=== PATIENT | male | born 1935 | race Caucasian/White ===

== ENCOUNTER 2016-12-08 20:00 | Inpatient (IN) | payer OTHER ==
[2016-12-08] MEDS ORDERED: LETS SOLN TOPICAL 1 EA SYR TP ONE (20:56)
[2016-12-08 21:15] LABS: % IMMATURE GRANULYOCYTES 0.4 % (0.0-1.1); ABSOLUTE IMMATURE GRANULOCYTES 0.04 10^3/uL (0.00-0.10); ADD DIFF? NO; ADD MORPH? NO; ADD SCAN? NO; ATYPICAL LYMPHOCYTE FLAG 10 (0-99); FRAGMENT RBC FLAG 0 (0-99); HEMATOCRIT 32.2 % (40.0-51.0); HEMOGLOBIN 10.6 g/dL (13.7-17.5); LEFT SHIFT FLG 0 (0-99); LIPEMIA HEMOLYSIS FLAG 80 (0-99); MEAN CELL HEMOGLOBIN 33.2 pg (27.9-34.1); MEAN CELL HEMOGLOBIN CONCENTR. 32.9 g/dL (32.4-36.7); MEAN CELL VOLUME 100.9 fL (81.5-99.8); MEAN PLATELET VOLUME 8.9 fL (8.7-11.7); PLATELET CLUMPS FLAG 0 (0-99); PLATELET COUNT 283 10^3/uL (150-400); RED BLOOD CELL COUNT 3.19 10^6/uL (4.40-6.38); RED CELL DISTRIBUTION WIDTH 13.5 % (11.5-15.2)
[2016-12-08 21:23] LABS: INR 1.18 (0.83-1.16)
[2016-12-08 21:24] LABS: APTT 33.9 SEC (23.0-38.0)
--- NOTE | 2016-12-08 21:31 | CT ---
1. CT Head Without Contrast History: Fall tonight, patient on blood thinning medicine (Pradaxa), abrasion right forehead. Technique: Noncontrast images through the head. Soft tissue and bone window evaluation is performed. Dose reduction techniques were utilized. Comparison: None Findings: There is focal hypodensity in the right white matter of the right frontal lobe, not associa abraham with obvious mass effect, that is suspicious for an acute or subacute white matter infarction, al though an underlying occult localized mass within the hypodensity (edema) cannot be excluded. There i s an overlying scalp hematoma without evidence of an intervening skull fracture. There is no pneumoce phalus. There is no evidence for hemorrhage, hydrocephalus or abnormal intracranial calcification. Ventricula r size is consistent with the underlying mild-moderate cerebral atrophy. No subarachnoid or subdural blood is identified. There is no midline shift. The ambient cistern is patent. Bone window evaluation reveals normally aerated paranasal and mastoid sinuses. There is no evidence of pneumocephalus. There is severe degenerative change of the craniocervical junction that will be better defined on cer vical CT. Impression: Relatively large area of indeterminate age, hypodensity in the right frontal white matter . Consider MRI without and with contrast for further evaluation, as well as to exclude an underlying mass. 2. CT Cervical Spine Without Contrast History: Trauma. Fall. Patient on per DEXA. Technique: Multislice helical CT through the cervical spine without contrast from the skull base to T 1. Soft tissue and bone evaluation is performed. Sagittal and coronal reconstructions are obtained an d reviewed. Dose reduction techniques were utilized. Findings: Cervical alignment is anatomic except for a mild spondylolisthesis at C4-C5 which is of con cern because there is fusion of all the vertebral bodies and posterior elements in excellent straight alignment between C2 and T1, above and below the C4-C5 level. This could possibly indicate an unstab le injury at the C4-C5 disc space level. My suspicion is that this patient has ankylosing spondylitis or end-stage rheumatoid arthritis with fusion. There is severe arthritic change of the joint between the eroded anterior ring of C1 and the intact odontoid process. There are multiple degenerative ossi cles between the skull base and the tip of the odontoid process. The C1-occipital condyle joints are mildly widened but normally aligned suggesting mild instability likely to compensate for the chronica lly fused lower cervical spine. I do not identify a definite acute fracture line. Soft tissue window evaluation does not show evidence of epidural or prevertebral hematoma. Impression: Potential evidence for an unstable C4-C5 level, related to a previously completely fused cervical spine below C2. Consider MRI of the cervical spine for further evaluation. Results called to Antonio Stephens at 9:27 PM Final results are concordant with the initial interpretation. General information for patients regarding this examination can be found at [email or web address]. If you have questions or comments about this report, please contact me at [phone] (hospital) or [phone] (cell).
[2016-12-08 21:45] LABS: ANION GAP 4 mEq/L (8-16); CALCIUM 8.3 mg/dL (8.5-10.4); CARBON DIOXIDE 26 mEq/l (22-31); CHLORIDE 109 mEq/L (97-110); GLOMERULAR FILTRATION RATE 32; GLUCOSE 89 mg/dL (70-100); POTASSIUM 4.8 mEq/L (3.5-5.2); SODIUM 139 mEq/L (134-144)
[2016-12-08] MEDS ORDERED: GADOBUTROL 10 ML VIAL IVP ONE (22:09)
--- NOTE | 2016-12-08 23:25 | EDPHY ---
H & P Stated Complaint: fall hit head. on Pradaxa Time Seen by Provider: 12/08/16 20:21 HPI/ROS: Chief complaint: Head injury History of present illness: This is a 81-year-old male, taking Pradaxa for atrial fibrillation, who presents to the emergency department for evaluation and treatment of a head injury. Just prior to arrival patient was walking to his car when he accidentally stubbed his toe, this caused him to trip and strike his forehead against the ground. He sustained a laceration to his forehead that has been bleeding, bleeding has been controlled with application of a dressing. He denies loss of consciousness. He denies headache or pain in other parts of his body. No reported paresthesias, weakness or paralysis or bowel or bladder dysfunction. Review of systems: A 10 point review of systems was obtained and other than described above was negative - Personal History Current Tetanus/Diphtheria Vaccine: Yes Current Tetanus Diphtheria and Acellular Pertussis (TDAP): Yes - Medical/Surgical History Hx Asthma: No Hx Chronic Respiratory Disease: No Hx Diabetes: No Hx Cardiac Disease: Yes Hx Renal Disease: Yes Hx Cirrhosis: No Hx Alcoholism: No Hx HIV/AIDS: No Hx Splenectomy or Spleen Trauma: No Other PMH: AFIB,ARTHRITIS,ULCER-1990, HIP FX W/ PINS, NECK FUSION, intermittent L arm/shoulder pain - Social History Smoking Status: Former smoker - Physical Exam Exam: General Appearance: Alert, nontoxic Eyes: PERRLA ENT: No hemotympanum, no diaz sign, no raccoon eyes Respiratory: Lungs clear to auscultation bilaterally Cardiac: Regular rate and rhythm. Gastrointestinal: Bowel sounds normal. Abdomen is soft, nondistended, nontender. Neurological: Alert and oriented. Strength and sensation intact and symmetrical. Skin: 1 cm laceration, vertically oriented to the right forehead Musculoskeletal: Forehead is tender around the laceration. The rest of the head is nontender. No apparent tenderness on palpation of the spine. Chest wall intact palpation. Moving all extremities without difficulty. Constitutional: Initial Vital Signs Temperature (C) 36.6 C 12/08/16 20:06 Heart Rate 72 12/08/16 20:06 Respiratory Rate 16 12/08/16 20:06 Blood Pressure 165/79 H 12/08/16 20:06 O2 Sat (%) 97 12/08/16 20:06 O2 Delivery Mode Room Air Allergies/Adverse Reactions: infliximab [From Remicade] Allergy (Verified 12/08/16 20:05) BENZOINE Allergy (Uncoded 12/08/16 20:05) Home Medications: Medication Instructions Recorded Dabigatran Etexilate Mesyl 75 mg PO BID 04/28/16 [Pradaxa] Diltiazem [Cardizem Immediate 120 mg PO 04/28/16 Release] Losartan Potassium [Cozaar] 12.5 mg PO 04/28/16 Omeprazole 40 mg PO DAILY 04/28/16 oxyCODONE IR [Oxycodone Ir (RX)] 10 mg PO PRN PRN 04/28/16 traZODone [traZODONE 100MG (*)] 100 mg PO 04/28/16 Folic Acid 12/08/16 Vitamin B-12 12/08/16 Medical Decision Making - Diagnostics Imaging: CT scan of the head concerning for large right frontal mass, CT of the cervical spine concerning for a unstable C4-C5 injury MRI of the brain without contrast concerning for large mass with vasogenic edema MRI of the cervical spine negative for acute injury MRI of the brain with IV contrast is pending at time of dictation Procedures: Procedure: Laceration repair. Verbal consent was obtained from the patient. The 1 cm laceration on the right forehead was anesthetized in the usual fashion. The wound was irrigated, draped and explored to its base with a gloved finger. There were no deep structures involved. No tendon injury was identified. The wound was repaired with 5 0 Prolene, running stitch. The wound repair was simple. The procedure was performed by myself. ED Course/Re-evaluation: Patient is discussed with my secondary supervising physician Dr. Len Cloud. Patient presents to the emergency department for evaluation of a head injury. Ultimately a brain mass is noted. Patient will therefore be admitted to the hospitalist service, Dr. Valentin Medrano. On-call neurosurgery, Dr. Trivedi will consult on this patient. The plan has been discussed with the patient who voiced understanding and agreement with it. Differential Diagnosis: Included but not limited to contusion, bony fracture, intracranial bleed, spinal cord injury - Data Points Laboratory Results: Laboratory Results 12/08/16 21:00 12/08/16 21:00 12/08/16 21:00 WBC 9.68 H 10^3/uL (3.80-9.50) RBC 3.19 L 10^6/uL (4.40-6.38) Hgb 10.6 L g/dL (13.7-17.5) Hct 32.2 L % (40.0-51.0) MCV 100.9 H fL (81.5-99.8) MCH 33.2 pg (27.9-34.1) MCHC 32.9 g/dL (32.4-36.7) RDW 13.5 % (11.5-15.2) Plt Count 283 10^3/uL (150-400) MPV 8.9 fL (8.7-11.7) Neut % (Auto) 74.1 % (39.3-74.2) Lymph % (Auto) 13.1 L % (15.0-45.0) [place] % (Auto) 10.3 % (4.5-13.0) Eos % (Auto) 1.7 % (0.6-7.6) Baso % (Auto) 0.4 % (0.3-1.7) Nucleat RBC Rel Count 0.0 % (0.0-0.2) Absolute Neuts (auto) 7.17 H 10^3/uL (1.70-6.50) Absolute Lymphs (auto) 1.27 10^3/uL (1.00-3.00) Absolute Monos (auto) 1.00 H 10^3/uL (0.30-0.80) Absolute Eos (auto) 0.16 10^3/uL (0.03-0.40) Absolute Basos (auto) 0.04 10^3/uL (0.02-0.10) Absolute Nucleated RBC 0.00 10^3/uL (0-0.01) Immature Gran % 0.4 % (0.0-1.1) Immature Gran # 0.04 10^3/uL (0.00-0.10) PT 15.0 SEC (12.0-15.0) INR 1.18 H (0.83-1.16) APTT 33.9 SEC (23.0-38.0) Sodium 139 mEq/L (134-144) Potassium 4.8 mEq/L (3.5-5.2) Chloride 109 mEq/L (97-110) Carbon Dioxide 26 mEq/l (22-31) Anion Gap 4 mEq/L (8-16) BUN 30 H mg/dL (7-23) Creatinine 2.0 H mg/dL (0.7-1.3) Estimated GFR 32 Glucose 89 mg/dL (70-100) Calcium 8.3 L mg/dL (8.5-10.4) Medications Given: Discontinued Medications Tetracaine/Epinephrine/Lidocaine (Lets Soln Topical) 1 ea TP EDNOW ONE Stop: 12/08/16 20:57 Last Admin: 12/08/16 21:10 Dose: 1 ea Departure - Departure Disposition: [facility] Inpatient Acute Clinical Impression: Mass of brain Laceration of forehead Qualifiers: Encounter type: initial encounter Qualifier Code: (S01.81XA) Laceration without foreign body of other part of head, initial encounter Condition: Good
--- NOTE | 2016-12-08 23:29 | MR ---
1. MRI of the Brain (Without Contrast) History: Fall, patient on blood thinner, hypodense right frontal lobe lesion identified on CT. Technique: T1-weighted images were acquired axially and sagittally from the foramen magnum to the ve rtex. Axial fast inversion recovery, fast T2-weighted, GRE and diffusion-weighted axial images were obtained without contrast. Findings: There is an area of vasogenic edema in the right frontal lobe that appears to be peripheral to a heterogeneous solid mass measuring approximately 26 x 12 mm in diameter that resides between th e right frontal horn and the lateral frontal cortex. There is no gradient drop out, indicating that t his does not represent hemorrhage, confirming the CT. Interestingly the lesion does not have signific ant mass effect. On the ADC map the lesion is bright but on the diffusion image it is dark, with the adjacent vasogenic edema demonstrating T2 shine through. There is diffuse moderate cerebral atrophy c onsistent with the patient's age. There is normal flow void in the vessels of the skull base. There i s scattered supratentorial microvascular ischemic change bilaterally with a few tiny lacunar veins pr esent in the white matter of the right posterior frontal and anterior parietal white matter. Impression: Suspicious for an unusual mass in the deep right frontal white matter associated with per ipheral vasogenic edema. Is there history of malignancy? MRI with IV contrast would be useful. 2. MRI of the Cervical Spine (Without Contrast) History: Fused cervical spine with a focal uni level spondylolisthesis at C4-C5 raising the possibili ty of occult unstable fracture in a patient with ankylosing spondylitis Technique: Sagittal T1, FSE T2 and STIR images. Axial FSE T2 and GRE images. Findings: The spine is completely fused between C2 and T1. There is no edema or evidence of a fractur e. The C4-C5 spondylolisthesis is solidly fused. There is no prevertebral or epidural hematoma. The c ervical cord is normal intrinsically. All neural foramen are widely patent. Impression: No evidence for occult fracture or cervical bleeding.. Results discussed with Antonio Stephens at 11:15 PM
[2016-12-08] MEDS ORDERED: ONDANSETRON 4 MG/2 ML VIAL IVP PRN (23:55)
[2016-12-08] MEDS ORDERED: oxyCODONE IR 5 MG TAB PO PRN (23:55)
[2016-12-08] MEDS ORDERED: ACETAMINOPHEN 325 MG TAB PO PRN (23:55)
[2016-12-08] MEDS ORDERED: PROMETHAZINE HCL 25 MG/ML INJ IVP PRN (23:55)
[2016-12-09] MEDS ORDERED: NS 1,000 ML IV ONE (00:56)
--- NOTE | 2016-12-09 01:18 | GHP ---
[f rep st] HISTORY AND PHYSICAL DATE OF ADMISSION: 12/08/2016 CHIEF COMPLAINT: Slip and fall. HPI: This is a 81-year-old male with history of atrial fibrillation and ankylosing spondylitis. He presented to the emergency department after sustaining a mechanical fall this evening. The patient w as at dinner at the [facility] [employer] when he was walking across a dark parking lot, stepped in a potho le, and tumbled forward landing on his head. He denied any loss of consciousness. The patient denies any significant recent falls. He denies any new numbness or weakness. During the patient's emergency department workup, he underwent a head CT and a cervical spine CT. The head CT showed a relatively large area of indeterminate age, hypodensity in the right frontal white matter. Subsequently, an MRI was done, which revealed a right frontal lobe mass. PAST MEDICAL HISTORY: 1. Atrial fibrillation. 2. Ankylosing spondylitis, not currently on immunosuppressive agents. 3. Peptic ulcer disease. 4. Chronic kidney disease, followed by Dr. Burks. PAST SURGICAL HISTORY: 1. Right hip ORIF. 2. Cervical fusion. HOME MEDICATIONS: Trazodone, oxycodone, Tylenol, Cozaar, diltiazem, Pradaxa. ALLERGIES: Remicade caused a rash. SOCIAL HISTORY: The patient is . His of pancreatic cancer a year and a half ago. He lives in [place]. He denies any tobacco or illicit drug use. He drinks alcohol occasionally. FAMILY HISTORY: Reviewed and noncontributory. REVIEW OF SYSTEMS: Comprehensive 10-point review of systems was done and is negative except for as m entioned in the HPI. PHYSICAL EXAM: VITAL SIGNS: Blood pressure 148/91, pulse 76, respiratory rate 16, O2 saturation 95% on room air. Temperature afebrile. GENERAL: No acute distress. HEAD: Normocephalic. There is a sutured laceration right forehead. MOUTH: Moist mucous membranes. NECK: Supple. No lymphadenopa thy. CARDIOVASCULAR: S1, S2. No JVD. No lower extremity edema. PULMONARY: Lungs are clear. No wheezes, rales, or rhonchi. ABDOMEN: Soft, nontender, nondistended. No guarding or rebound tendern ess. Normoactive bowel sounds. EXTREMITIES: No clubbing or cyanosis. NEURO: Face is symmetric. Cranial nerves 2 through 12 grossly intact. Muscle strength 5/5 bilateral upper extremities. Flexio n, extension, design technology teacher strength. Muscle strength 5/5 flexion and extension at the hip, at the knee, and at the foot. DTRs are 2+ and symmetric at the patella. SKIN: Clear. No rashes. DIAGNOSTICS: WBC is 9.68, hemoglobin 10.6, hematocrit 32.2, platelets 283. INR 1.18. Sodium 139, p otassium 4.8, chloride 109. CO2 26, BUN 30, creatinine 2, glucose 89. IMAGING: Head CT was reviewed. Refer to report. C-spine CT showed evidence for unstable C4-C5. Ce rvical spine MRI is pending. ASSESSMENT/PLAN: This is a 81-year-old male, who sustained a mechanical fall this evening, landing o n his head, found incidentally to have: 1. Right frontal mass of uncertain etiology. Plan: The patient will be admitted to the hospital wh ere he will be monitored. Dr. Trivedi from Neurosurgery was consulted by the emergency department who will see the patient in the morning. For now, I will defer any further testing. 2. History of chronic kidney disease, stage 3. Plan: Avoid nephrotoxins. MRI of the brain with ga dolinium has been suggested. I would like to discuss this with his treating locker attendant in the radi ology department in the morning to further weigh the risks and benefits of further imaging with the r isk of nephrogenic systemic fibrosis. 3. Macrocytic anemia that appears to be chronic. Plan: Monitor for bleeding. 4. History of ankylosing spondylitis. 5. The patient requests to be DNR status. /[id number]/MODL
[2016-12-09 05:11] LABS: % IMMATURE GRANULYOCYTES 0.3 % (0.0-1.1); ABSOLUTE IMMATURE GRANULOCYTES 0.03 10^3/uL (0.00-0.10); ADD DIFF? NO; ADD MORPH? NO; ADD SCAN? NO; ATYPICAL LYMPHOCYTE FLAG 10 (0-99); FRAGMENT RBC FLAG 0 (0-99); HEMATOCRIT 30.3 % (40.0-51.0); HEMOGLOBIN 9.8 g/dL (13.7-17.5); LEFT SHIFT FLG 0 (0-99); LIPEMIA HEMOLYSIS FLAG 80 (0-99); MEAN CELL HEMOGLOBIN CONCENTR. 32.3 g/dL (32.4-36.7); MEAN PLATELET VOLUME 9.3 fL (8.7-11.7); PLATELET CLUMPS FLAG 0 (0-99); PLATELET COUNT 275 10^3/uL (150-400); RED BLOOD CELL COUNT 2.97 10^6/uL (4.40-6.38); RED CELL DISTRIBUTION WIDTH 13.3 % (11.5-15.2)
[2016-12-09 05:27] LABS: ANION GAP 6 mEq/L (8-16); CARBON DIOXIDE 25 mEq/l (22-31); CHLORIDE 111 mEq/L (97-110); CREATININE 1.7 mg/dL (0.7-1.3); GLOMERULAR FILTRATION RATE 39; GLUCOSE 68 mg/dL (70-100); POTASSIUM 4.7 mEq/L (3.5-5.2); SODIUM 142 mEq/L (134-144)
[2016-12-09] MEDS ORDERED: GADOBUTROL 10 ML VIAL IVP ONE (08:59)
--- NOTE | 2016-12-09 10:53 | MR ---
MRI Examination of the Brain, With Contrast. HISTORY: Prior examination of one day earlier demonstrates an abnormal area of signal intensity withi n the right frontal region. Additional characterization with postcontrast enhanced imaging requested. TECHNIQUE: After intravenous administration of 5 mL Gadavist, post contrast enhanced MR imaging of th e brain is obtained in 3 planes. COMPARISON STUDY: December 08, 2016. FINDINGS: The previously identified area of abnormal signal intensity within the right frontal lobe i s again noted, associated with poorly defined parenchymal enhancement and gyral enhancement, with vas ogenic edema. Imaging features are most compatible with a subacute ischemic infarction with luxury pe rfusion centrally. A mass is felt to be less likely. Follow up imaging in 2-3 months would be of bene fit in documentation of progressive evolution of ischemic injury or persistence of abnormality which would favor a mass. Also noted on prior study is an additional area of acute focal ischemia within the left occipital lob e, findings suggesting multiple sites of brain ischemia of different age and in different vascular te rritories. This area does not enhance due to its acute age. No additional areas of abnormal enhancement noted. Underlying cerebral and cerebellar atrophy is agai n identified. There is thickening and enhancement of the subcutaneous tissues over the right frontal region compatible with prior trauma and hematoma. IMPRESSION: 1. Abnormal enhancement of the parenchyma and cortex of the right frontal lobe, with imaging features favoring a subacute ischemic infarction. Follow up MR in 2-3 months would be of benefit in confirmat ion. 2. Small focus of acute cortical ischemia within the left occipital lobe. 3. Abnormal thickening and enhancement of the subcutaneous tissues over the right frontal region comp atible with prior trauma/hematoma. Cosigned: Mian Wong M.D.
--- NOTE | 2016-12-09 12:00 | NEUSURGPN ---
Assessment/Plan: 81 yo male status post mechanical fall. No LOC Mild right scalp lac - sutured MRI with abnormal right frontal lesion to be discussed in detail at our next Tumor Board meeting. Pt may be seen as outpatient for further treatment options per Dr. Farooq GARCIA per Medicine Formal consult dictation to jim Subjective: Awake, alert, comfortable. Denies ROGERS or neuro changes Eating breakfast Objective: Neuro: A+OX 4 PERRLA, EOMI follows commands speech clear, no facial droop no focal weakness Neurosurgery Physical Exam - Vitals, I&O, Labs I and O 12/08/16 12/09/16 12/10/16 05:59 05:59 05:59 Intake Total 10 Balance 10 Weight 63.5 kg Intake: IV Infused (ml) 10 Vital Signs Temp Pulse Resp BP Pulse Ox 36.7 C 70 20 148/78 H 97 12/09/16 11:36 12/09/16 11:36 12/09/16 11:36 12/09/16 11:36 12/09/16 11:36 Laboratory Results 12/09/16 04:49 12/09/16 04:49 ICD10 Worksheet Patient Problems: Problems Problem Status Diagnosed Brain mass Acute Forehead laceration Acute
[2016-12-09] MEDS ORDERED: oxyCODONE IR 5 MG TAB PO PRN (12:49)
--- NOTE | 2016-12-09 13:30 | GCON ---
[f rep st] CONSULTATION NEUROSURGERY CONSULTATION DATE OF CONSULTATION: 12/09/2016 CHIEF COMPLAINT: Mechanical fall. HISTORY OF PRESENT ILLNESS: The patient is a pleasant 81-year-old gentleman with a history of atrial fibrillation on Pradaxa. He also has a history of ankylosing spondylitis. The patient states that he was walking through a dark parking lot last night, when he thinks he stepped in a small possible and suffered a mechanical fall without any loss of consciousness. He drove himself to the emergency department where he was seen and admitted to the step-down unit overnight for further observation. A CT scan of the head was performed in the ED with no evidence of acute blood, but there was a hypodensity noted in the right frontal region and a subsequent MRI was performed demonstrating abnormal enhancement of the parenchyma and cortex in the right frontal lobe. Overnight, the patient did not have any neurologic changes, and currently this morning he is doing well. ALLERGIES: Remicade. PAST MEDICAL HISTORY: 1. Atrial fibrillation on Pradaxa. 2. Ankylosing spondylitis. 3. Peptic ulcer disease. 4. Chronic kidney disease. PAST SURGICAL HISTORY: Right hip surgery and prior cervical fusion. MEDICATIONS: At home: Trazodone, oxycodone, Tylenol, Cozaar, diltiazem, Pradaxa. SOCIAL HISTORY: Nonsmoker. He is a . He drinks a glass of wine daily and lives alone. REVIEW OF SYSTEMS: Negative except for what is mentioned in the HPI. PHYSICAL EXAM: GENERAL: Pleasant, healthy-appearing 81-year-old male, in no apparent distress. HEAD, EARS, NOSE AND THROAT: Within normal limits with the exception of a sutured right forehead laceration. EXTREMITIES: Within normal limits, with the exception of a bandage over his right kneecap. SKIN: [place], warm and dry. NEUROLOGIC: The patient is awake, alert, and oriented x4. Cranial nerves 2-12 are intact to gross examination. Speech is fluent. Tongue is midline. Spinal axis muscles are intact. There is no facial droop. No pronator drift. The patient has equal and symmetric strength of the bilateral upper and lower extremities with symmetrically decreased reflexes throughout the bilateral upper and lower extremities at 1+. There is no clonus and no Sorenson's. FAMILY HISTORY: Reviewed and noncontributory. DATA REVIEW: CT scan of the brain without contrast on 12/08/2016 demonstrates no evidence of acute hemorrhage, with focal hypodensity in the right frontal lobe not associated with any mass effect. This is suspicious for an acute or subacute white matter infarction, although an underlying occult localized mass within the hypodensity cannot be excluded. Soft tissue swelling on the overlying scalp hematoma is noted. There is no evidence of pneumocephalus. CT of the cervical spine shows spinal spondylolisthesis at C4-5. There is fusion of all the cervical vertebral bodies and posterior elements between C2 and T1. Abnormal arthritic changes of the joint between the eroded anterior ring of C1 and the intact spinous processes noted. MRI of the brain shows a small acute nonhemorrhagic infarct in the right posterior occipital lobe. Abnormal mass is noted in the deep right frontal white matter associated with peripheral vasogenic edema. IMPRESSION: This is a 81-year-old male, status post mechanical fall. He has history of atrial fibrillation and takes Pradaxa. An admission head CT did not demonstrate any acute hemorrhage, but did reveal an underlying abnormal right frontal mass which was further evaluated with an MRI of the brain. It is unclear what this mass is. The patient remains neurologically stable at this time, is doing well. PLAN: Above issues were discussed with the patient in detail today, as well as with Dr. Trivedi who saw the patient in the ICU. At this time, we recommend that the patient's images of the brain be discussed at our next tumor board in approximately 2 weeks from now for further treatment and recommendations regarding the abnormal right frontal lobe lesion. The patient understands this and from our standpoint could be discharged home, but that will be up to the Medicine Service at this time. We would recommend outpatient followup with Dr. Trivedi in approximately 2 weeks to discuss further treatment options pending are review of his images at tumor board. Copy requested to: Dr. Len Trevino /[id number]/MODL MTDD
--- NOTE | 2016-12-09 14:05 | GCON ---
[f rep st] CONSULTATION STITCH MARKER CONSULTATION DATE OF CONSULTATION: 12/09/2016 REASON FOR ADMISSION: Fall. HISTORY OF PRESENT ILLNESS: The patient is a very pleasant 81-year-old white male with extensive pas t medical history of atrial fibrillation, peptic ulcer disease, chronic renal insufficiency, and anky losing spondylitis. He presented after a fall at home. He landed on his forehead after stepping in a pothole. There was no loss of consciousness, but he could not get the bleeding to stop. He was alexander bsequently admitted. CT scan and then subsequently an MRI were performed, which showed a right front al lobe mass. Currently, patient is comfortable. He is awake and alert and oriented x3 and he wishe s to be discharged home. 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 PAST SURGICAL HISTORY: Hip surgery and a cervical fusion. ALLERGIES: Remicade. SOCIAL HISTORY: No history of tobacco use. No history of significant alcohol use. He is . MEDICATIONS: At home include trazodone, oxycodone, Tylenol, Cozaar, diltiazem, and Pradaxa. PHYSICAL EXAM: VITAL SIGNS: Blood pressure 148/78, pulse 70, respirations 20, temperature is 36.7, oxygen saturation 97% on room air. GENERAL: He is a well developed, well nourished, 81-year-old, wh ite male who is resting comfortably in no acute distress HEENT: Eyes: PERRL, EOMI. Throat shows no erythema or tonsillar hypertrophy. NECK: Supple. There is no cervical adenopathy. HEART: Regula r rate and rhythm without murmurs, rubs, gallops. LUNGS: Diminished breath sounds. Mild prolongati on of expiratory phase, but there is no wheeze. ABDOMEN: Soft, nontender. Bowel sounds present in all 4 quadrants. EXTREMITIES: No clubbing, cyanosis, or edema. LABORATORIES: White count is 9.5, hemoglobin 9.8, hematocrit 30, platelet count is 275. Sodium 142, potassium 4.7, chloride 111, CO2 is 25, BUN 28, creatinine 1.7, glucose is 68. Brain MRI showed abnormal enhancement of the parenchyma and cortex of the right frontal lobe. IMPRESSION: 1. Status post fall. 2. Head trauma. 3. Right frontal mass, etiology of which is unclear. Query whether this is tumor versus old stroke. 4. History of atrial fibrillation, on chronic anticoagulation. 5. Ankylosing spondylitis. 6. Peptic ulcer disease. 7. Chronic renal insufficiency. RECOMMENDATIONS: The patient has been seen by Neurosurgery who feel he may be seen as an outpatient by Dr. Trivedi. Will discuss the case with Medicine. Anticipate patient being discharged home today. Thank you very much. /[id number]/MODL
--- NOTE | 2016-12-09 16:18 | HOSPPROG ---
Hospitalist Progress Note Assessment/Plan: * brain mass versus subacute CVA * favoring CVA * does have atrial fibrillation but states that he has been taking his Pradaxa * will have Neurology see * get carotid ultrasound as well as echo * PT OT eval * history atrial fibrillation * will hold Pradaxa until neuro sees. Not sure if we should be anticoagulating with a fairly large stroke * chronic renal disease * appears to be at baseline * social * lost about a year and a half ago and has been declining rapidly since then Subjective: no new complaints. Denies any focal weakness. States he has been feeling overall weak the last few days Objective: Vital Signs Temp Pulse Resp BP Pulse Ox 36.7 C 56 L 19 171/89 H 98 12/09/16 15:34 12/09/16 15:34 12/09/16 15:34 12/09/16 15:34 12/09/16 15:34 Laboratory Results 12/09/16 04:49 12/09/16 04:49 12/08/16 12/09/16 12/10/16 05:59 05:59 05:59 Intake Total 10 Balance 10 PT 15.0 SEC (12.0-15.0) 12/08/16 21:00 INR 1.18 (0.83-1.16) H 12/08/16 21:00 - Physical Exam Constitutional: no apparent distress, appears nourished, not in pain Eyes: anicteric sclera, EOMI Ears, Nose, Mouth, Throat: moist mucous membranes, hearing normal, ears appear normal Cardiovascular: regular rate and rhythym, no murmur, rub, or gallop Respiratory: no respiratory distress, no rales or rhonchi Gastrointestinal: normoactive bowel sounds, soft, non-tender abdomen, no palpable masses Skin: warm Neurologic: AAOx3 Psychiatric: interacting appropriately, not anxious, not encephalopathic, thought process linear ICD10 Worksheet Patient Problems: Problems Problem Status Diagnosed Brain mass Acute Forehead laceration Acute
--- NOTE | 2016-12-09 16:22 | ECHO ---
[id number] + + [address] : : [place] [address] : : [phone] + + Adult Echocardiographic Report + --------+ :Name: NORA YOUNG HStudy Date: 12/09/2016 11:51 AM BP: 148/78 mm Hg : : Hospital Admission Number: [id number] Locat ion: 241: :: 1935 Gender: Male Height: 67 in : :Age: 81 yrs Race: WH Weight: 139 l b : :Reason For Study: source of emboli : : BSA: 1.7 mete rs2 : :History: cva : + --------+ MMode/2D Measurements & Calculations IVSd: 1.3 cm RVDd: 3.4 cm FS: 28.5 % LVLd ap4: 8.2 cm LVPWd: 1.1 cm LVIDd: 4.1 cmEDV(Teich): 72.6 mlEDV(MOD-sp4): 117.0 ml LVIDs: 2.9 cmESV(Teich): 32.3 mlLVLs ap4: 7.2 cm EF(Teich): 55.5 % ESV(MOD-sp4): 37.0 ml EF(MOD-sp4): 68.4 % SV(MOD-sp4): 80.0 ml Normal Measurement Values: + + :LVIDd (3.5-5.7cm) IVSd (0.6-1.1cm) LVPWd (0.6-1.1cm) Aortic Root (2.0-3.7cm)Left Atrium (1.5-4.0cm): :LV Vol(d) (76-115ml) LV Vol(s) (29-48ml) Ejec Fraction (50-65%)PV Yordan (0.6- 1.2m/s) TV Yordan (0.4-1.0m/s) : :MV E Yordan (0.8-1.0m/s)MV A Yordan (0.3-1.0m/s)LVOT Yordan (0.7-1.2m/s) Asc Ao Yordan ( 0.9-1.8m/s) : + + Doppler Measurements & Calculations MV E max yordan: Ao V2 max: LV V1 max: PA V2 max: 62.7 cm/sec 129.4 cm/sec 119.4 cm/sec 67.2 cm/sec MV A max yordan: Ao max PG: LV V1 max PG: PA max P.3 cm/sec 6.7 mmHg 5.7 mmHg 1.8 mmHg MV E/A: 0.66 MV dec time: 0.26 sec TR max yordan: 297.7 cm/sec TR max P.4 mmHg RAP systole: 5.0 mmHg RVSP(TR): 40.4 mmHg Left Ventricle The left ventricle is normal in size and function. There is mild concentric left ventricular hypertrophy. There is Doppler evidence for diastolic dysfunction. Ejection Fraction = 65-70%. No regional wall motion abnormalities noted. Right Ventricle The right ventricle is normal in size and function. Atria The left atrial size is normal. Right atrial size is normal. Mitral Valve The mitral valve is normal in structure and function. Elongated mitral valve chordea noted which is noted to migrate into the left ventricular outflow tract during systole. No LVOT obstruction noted. There is no mitral valve stenosis. There is mild mitral regurgitation. Tricuspid Valve The tricuspid valve is normal in structure and function. There is no tricuspid stenosis. There is mild tricuspid regurgitation. Right ventricular systolic pressure is 40mmHg. There is Doppler evidence for mild pulmonary hypertension. Aortic Valve The aortic valve is normal in structure and function. There is no aortic stenosis. Trace aortic regurgitation. Pulmonic Valve The pulmonic valve is not well visualized. Great Vessels Borderline aortic root dilatation. Pericardium/Pleural trivial pericardial effusion. Conclusion A two-dimensional transthoracic echocardiogram with M-mode and Doppler was performed. There is no obvious source of embolus identified. If one is highly clinically suspected, then transesophageal echocardiography should be considered. The left ventricle is normal in size and function. There is mild concentric left ventricular hypertrophy. There is Doppler evidence for diastolic dysfunction. Ejection Fraction = 65-70%. There is mild mitral regurgitation. There is mild tricuspid regurgitation. Right ventricular systolic pressure is 40mmHg. There is Doppler evidence for mild pulmonary hypertension. The aortic valve is normal in structure and function. Trace aortic regurgitation. Borderline aortic root dilatation. Trivial pericardial effusion is present. Final Reading Physician: Jaclyn Ortiz signed on 12/09/2016 04:20 PM Ordering Physician: Jaret Mahoney Performed By: Andreia Head
[2016-12-09] MEDS: DABIGATRAN ETEXILATE MESYL 75 MG CAP PO SCH (18:11)
[2016-12-09] MEDS: ACETAMINOPHEN 500 MG TAB PO SCH (19:22)
[2016-12-09] MEDS: PANTOPRAZOLE SODIUM 40 MG TAB PO SCH (19:23)
--- NOTE | 2016-12-09 20:26 | US ---
Bilateral Duplex/Doppler Carotid Sonography Clinical Indications: History of CVA in a 81-year-old male; evaluate for arterial occlusive disease. Technique: The cervical portions of the carotid and vertebral arteries were imaged and interrogated b y color and pulsed Doppler. Spectral analysis was performed. Findings: Right Carotid: The common carotid artery, bifurcation, and origins of the internal and external carot id arteries are well imaged. Moderate plaque formation is seen at the level of the carotid bifurcati on. Peak ICA systolic velocity; 88 cm/sec. The internal to common carotid artery ratio is calculated at 1.2. Peak ICA diastolic velocity; 22 cm/sec. There is no evidence of flow-limiting stenosis. Left Carotid: The common carotid artery, bifurcation, and origins of the internal and external carot id arteries are well imaged. Mild-moderate plaque formation is seen at the level of the carotid bifurcation. Peak ICA systolic velocity; 97 cm/sec. The internal to common carotid artery ratio is calculated at 1.1. Peak ICA diastolic velocity; 22 cm/sec. There is no evidence of flow-limiting stenosis. Vertebral Arteries: Antegrade flow is shown by pulsed Duplex/Doppler of each vertebral artery. Impression: Plaque formation is seen involving the carotid bifurcations bilaterally with no evidence of flow-limiting carotid stenosis. Measurement of carotid stenosis is based on velocity parameters that correlate the residual internal carotid diameter with [place] Symptomatic Carotid Endarterectomy Trial (NASCET) based stenosis levels.
[2016-12-09] MEDS ORDERED: traZODone 100 MG TAB PO SCH (21:00)
[2016-12-09] MEDS ORDERED: NON-FORMULARY NEW DRUG (Omeprazole [Omeprazole] 40 MG) PO SCH (21:00)
[2016-12-09] MEDS ORDERED: DILTIAZEM CD 120 MG CAP PO SCH (21:00)
--- NOTE | 2016-12-09 23:06 | GCON ---
[f rep st] CONSULTATION NEUROLOGIC CONSULTATION. REFERRING PHYSICIAN: Valentin Medrano DO HISTORY: The patient is a 81-year-old gentleman who I am asked to see in neurologic consultation whit galvan possible stroke versus a right frontal mass lesion. The history is obtained from reviewing me dical records, as well as discussion with the patient. He came to the hospital yesterday to the [facility] room where he drove himself after a fall. He said he was walking in a parking lot and it was d ark, and he tripped in a pot hole, and hit his right frontal scalp. He has no history of similar pro blems. He has never had a known stroke. He was not experiencing any focal numbness or weakness. Over the years, of about 2 years, he has noticed various visual phenomena he described as red dots or spider web type phenomena in his vision when he is looking at something white. He has had ophthalmo logic exams, and they have never found anything specific to explain it. When he had his symptoms dev elop, he says he was not confused. He has a history of atrial fibrillation and is currently on Wes xa which he has been on for a few years. History of hip fracture and neck fusion, and intermittent p ains in his shoulders. SOCIAL HISTORY: He quit smoking many years ago. He has about 1 glass of wine a day. FAMILY HISTORY: Notable for stroke in his mother who around age 80. STUDIES: In the emergency department, he had CT showing a right frontal hypodensity with possible ma ss, and subsequent MRI reported that there was a possible mass with edema but no mass effect. Then s ubsequent MRI with contrast has been interpreted as more consistent with ischemic change, perhaps sub acute infarct in the right frontal region and a left posterior occipital area of restricted diffusion consistent with acute ischemia. Therefore, I was called for consultation regarding these issues. REVIEW OF SYSTEMS: As outlined above, otherwise unremarkable. PHYSICAL EXAM: VITAL SIGNS: Blood pressure is 171/89, pulse of 56, respirations 19, temperature 36. 7. GENERAL: He is well developed, no acute distress. NECK: Supple with no bruits or masses. CARD IAC: Regular rate and rhythm. NEUROLOGIC: He is awake, alert, attentive with clear fluent speech a nd oriented to person, place, and time. The NIH stroke scale is 0. Pupils are 3 mm and reactive. E xtraocular movements are intact. Visual vargas are full. I do not detect any facial asymmetry. No facial numbness. On motor, normal muscle bulk and tone with no focal weakness, but perhaps a little bit of mild proximal weakness in the upper extremities. He is not ataxic. Reflexes 1+. I have reviewed all diagnostic studies and agree with interpretations with this question of evolving ischemic changes in the right frontal lobe versus an underlying mass, and then the acute ischemic steve nges in the left posterior occipital lobe. The MRI report from December 09 documents this. The brain MRI from December 08 has an addendum which incorrectly states this is in the right posterior occipita l lobe but it is in the left posterior occipital lobe. IMPRESSION: The patient has evidence of an acute stroke in the left posterior occipital lobe without any clinical features to explain this. He also has an area of edema in the right frontal lobe just lateral to the anterior horn of the lateral ventricle and extending towards the cortex with features a bit more suspicious for a subacute infarction rather than a mass lesion like a neoplasm. However, the presentation is a little unusual in that he simply had a fall which led to the imaging a nd these findings. He does not have a neurologic deficit that correlates with any of the findings. I do not think the direct right forehead trauma would so rapidly produce these changes in the right f rontal lobe, although that is precisely where he hit his head. The right frontal area is relatively silent clinically, so he may have very well suffered an infarct which would suggest he might be break ing through anticoagulation for his atrial fibrillation since we have two infarcts of different age a nd in different vascular territories. Echocardiogram results are pending. Carotid ultrasound result s are pending. The patient needs to remain in the hospital at least overnight so we can further clarify the situatio n before moving forward, although serial imaging with MRI should help clarify whether we are, in fact , truly dealing with ischemia related to stroke versus any other kind of neoplastic process. The pat ient's current medications areTylenol as needed, diltiazem, losartan, Zofran, oxycodone as needed, Pr otonix, Phenergan and trazodone. He is currently being held on the Pradaxa, but I think we will rest art that. /[id number]/MODL
[2016-12-10 05:27] VITALS: O2SAT 97
[2016-12-10] MEDS: ACETAMINOPHEN 500 MG TAB PO SCH (08:38)
[2016-12-10] MEDS: PANTOPRAZOLE SODIUM 40 MG TAB PO SCH (08:38)
[2016-12-10 08:44] VITALS: BP 126/65; PULSE 71; RESP 21; TEMP 97.7
--- NOTE | 2016-12-10 08:46 | NEUROPROG ---
Assessment: As of now, we have evidence of a definite left posterior occipital stroke which is acute for the exact onset is unclear because he did not have a clinical presentation associated with any visual loss. He seems to have simply fallen and struck his head. He has this right frontal lesion of uncertain cause which is favored to be ischemic in nature but an underlying mass cannot be definitively excluded. Neurosurgery has seen the patient and wants to follow -up in a few weeks with repeat imaging. That seems appropriate. He will continue on his current medication. He should be able to be discharged today with monitoring. He has been given my card and is to contact me should any acute neurologic symptoms arise. It is likely that follow-up imaging in a few weeks with MRI can help resolve these unanswered questions of the etiology of the lesion in the right frontal lobe. Subjective: Teo is reporting no complaints this morning. He says that he does not have any change in vision or speech and denies focal numbness or weakness. He has not noticed any exacerbating or alleviating factors for any of the symptoms he previously experienced. He denies nausea. No fever or chills or chest pain or palpitations. Objective: Vital Signs Temp Pulse Resp BP Pulse Ox 36.9 C 57 L 18 133/55 H 97 12/09/16 20:00 12/10/16 05:26 12/10/16 05:26 12/10/16 05:26 12/10/16 05:26 12/09/16 12/10/16 12/11/16 05:59 05:59 05:59 Intake Total 1350 Balance 1350 PT 15.0 SEC (12.0-15.0) 12/08/16 21:00 INR 1.18 (0.83-1.16) H 12/08/16 21:00 The current NIH stroke scale is 0. he had echocardiogram and carotid ultrasound which were unrevealing. He is alert and attentive and oriented to person place time and general situation. Recent and remote memory are preserved. Concentration and attention are normal. He is a little bit hard of hearing. Pupils are 3 mm and reactive. Extraocular movements are intact. No visual field loss. Normal facial sensation and strength. Palate elevates symmetrically and tongue protrudes midline. Motor examination reveals normal muscle bulk and tone with 5/5 strength. Sensation is preserved for light touch. No ataxic movements in the upper extremities. His gait has been steady. Allergies/Adverse Reactions: infliximab [From Remicade] Allergy (Verified 12/08/16 20:05) BENZOINE Allergy (Uncoded 12/08/16 20:05)
[2016-12-10] MEDS: DABIGATRAN ETEXILATE MESYL 75 MG CAP PO SCH (08:49)
--- NOTE | 2016-12-10 08:49 | PDINTPN ---
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 Assessment/Plan: Assessment/Plan: * S/P fall with head contusion * Right frontal mass-query old stroke vs mass -neurologically stable * Pain-okay * Afib * CRI * Dispo-likely home today Subjective: Resting comfortably Objective: Vital Signs Temp Pulse Resp BP Pulse Ox 36.5 C 71 21 H 126/65 H 97 12/10/16 08:00 12/10/16 08:00 12/10/16 08:00 12/10/16 08:00 12/10/16 08:00 12/09/16 12/10/16 12/11/16 05:59 05:59 05:59 Intake Total 1350 Balance 1350 PT 15.0 SEC (12.0-15.0) 12/08/16 21:00 INR 1.18 (0.83-1.16) H 12/08/16 21:00 Physical Exam - Physical Exam General Appearance: alert, no apparent distress EENT: PERRL/EOMI, normal ENT inspection, other (head lac) Neck: non-tender, full range of motion, supple, normal inspection Respiratory: chest non-tender, lungs clear, normal breath sounds Cardiac/Chest: normal peripheral pulses, regular rate, rhythm Abdomen: normal bowel sounds, non-tender, soft Male Genitalia: deferred Rectal: deferred Skin: normal color, warm/dry Extremities: normal range of motion, non-tender, normal inspection, normal capillary refill ICD10 Worksheet Patient Problems: Problems Problem Status Diagnosed Brain mass Acute Forehead laceration Acute
[2016-12-10] MEDS ORDERED: LOSARTAN POTASSIUM 25 MG TAB PO SCH (09:00)
[2016-12-10] MEDS ORDERED: DILTIAZEM CD 120 MG CAP PO SCH (09:00)
[2016-12-10] MEDS ORDERED: BIMATOPROST 0.01% 2.5 ML OPHT.BTL EACHEYE SCH (09:00)
[2016-12-10] MEDS ORDERED: FOLIC ACID 1 MG TAB PO SCH (09:00)
--- NOTE | 2016-12-10 12:09 | GDS ---
[f rep st] DISCHARGE SUMMARY DISCHARGE DIAGNOSES: 1. Right frontal brain mass versus cerebrovascular accident. 2. Recent embolic cerebrovascular accident. 3. History of atrial fibrillation. 4. History of ankylosing spondylitis. 5. Chronic kidney disease. HISTORY: This is a 81-year-old male who presented after sustaining a mechanical fall. A routine hea d CT at that time showed a right frontal lobe mass. HOSPITAL COURSE: MRI with and without contrast was done. Neurosurgery and Neurology consultations w ere obtained. The current thought is that this is probably a subacute CVA, although it is unclear wh y he is not having many symptoms from this. He did have an echocardiogram and carotid ultrasounds wh ich were negative. The plan will be for him to follow up with both Neurosurgery and Neurology and fo r repeat MRI in a couple weeks. In the meantime, I have added aspirin to his Pradaxa in case this is a stroke that has broken through Pradaxa treatment. DISPOSITION: Home. DISCHARGE MEDICATIONS: Resume his home medicines, which include losartan, diltiazem, Pradaxa, and tr azodone. In addition, given aspirin 81 mg daily. FOLLOWUP INSTRUCTIONS: He was instructed to follow up with his primary care doctor for suture remova l as well as Neurology and Neurosurgery within 1-2 weeks. TIME SPENT: Greater than 30 minutes was spent on discharge. /[id number]/MODL
== END 2016-12-10 11:05 | disposition home or self-care (01) | DRG 70 ==
LOC: INTOOBSV 23:28 → F2N 12-09 01:38 → OBSVTOIN 12-09 16:00
PROVIDERS: ADMIT Family Medicine; ATTEND Family Medicine
PROC: 0HQ1XZZ Repair Face Skin, External Approach (ICD-10-PCS; principal; 2016-12-09)
DX: G93.89 Other specified disorders of brain (principal); I63.9 Cerebral infarction, unspecified; G93.6 Cerebral edema; S01.81XA Laceration without foreign body of other part of head, initial encounter; W01.0XXA Fall on same level from slipping, tripping and stumbling without subsequent striking against object, initial encounter; Y92.481 Parking lot as the place of occurrence of the external cause; Y92.520 Airport as the place of occurrence of the external cause; N18.3 Chronic kidney disease, stage 3 (moderate); D53.9 Nutritional anemia, unspecified; I48.91 Unspecified atrial fibrillation; M45.9 Ankylosing spondylitis of unspecified sites in spine; Z87.11 Personal history of peptic ulcer disease; Z79.01 Long term (current) use of anticoagulants; Z98.1 Arthrodesis status; Z66 Do not resuscitate
CPT/HCPCS: 97161-GP; A9585; G0378; G8978-GP-CI; G8979-GP-CI; G8980-GP-CI

== ENCOUNTER → 2017-01-10 | Outpatient (CLI) | payer OTHER ==
[~2017-01-10] MED LIST: GADOBUTROL 10 ML VIAL IVP ONE
[2017-01-10 08:21] LABS: CREATININE 1.9 mg/dL (0.7-1.3)
== END ==
LOC: FIMAGING 07:35
PROVIDERS: ATTEND Physician Assistant
DX: G93.89 Other specified disorders of brain (principal)
CPT/HCPCS: 70553; A9585

== ENCOUNTER → 2017-05-01 | Outpatient (CLI) | payer OTHER | LOC: FIMAGING 10:02 | PROVIDERS: ATTEND Physician Assistant Surgical | DX: G93.89 Other specified disorders of brain (principal) | CPT/HCPCS: 70553; A9585 ==

== ENCOUNTER → 2017-10-23 | Outpatient (CLI) | payer OTHER | LOC: FIMAGING 09:21 | PROVIDERS: ATTEND Physician Assistant | DX: I63.9 Cerebral infarction, unspecified (principal) | CPT/HCPCS: 70553; A9585 ==

== ENCOUNTER → 2017-11-22 | Outpatient (CLI) | payer OTHER | LOC: BHFA 15:30 | PROVIDERS: ATTEND Nurse Practitioner Family | DX: I71.9 Aortic aneurysm of unspecified site, without rupture (principal); I77.9 Disorder of arteries and arterioles, unspecified; I63.9 Cerebral infarction, unspecified; I48.0 Paroxysmal atrial fibrillation ==

== ENCOUNTER 2017-12-13 11:50 | Day surgery (SDC) | payer OTHER ==
[2017-12-13] MEDS ORDERED: NS 1,000 ML IV ONE (11:53)
--- NOTE | 2017-12-13 13:07 | PDHPUP ---
History & Physical Update H&P update statement: This history and physical update is based on an assessment of the patient which was completed after admission or registration (within 24 hours), but prior to the surgery/procedure. H&P update: H&P reviewed & patient examined, no change in patient's condition since H&P completed
--- NOTE | 2017-12-13 13:08 | PDPROPOC ---
Sedation Plan of Care Sedation Plan of Care: vital signs stable, mental status noted, patient educated of risks, benefits, alternatives, patient can tolerate sedation ASA Classification: ASA 1 Planned drugs: fentanyl, midazolam Mallampati Score: Class 1 Mallampati Reference Image: Patient passed 3-3-2 rule?: Yes
[2017-12-13] MEDS ORDERED: MIDAZOLAM 2 MG/2 ML VIAL ONE (13:09)
[2017-12-13] MEDS ORDERED: fentaNYL 100 MCG/2 ML INJ ONE (13:09)
== END 2017-12-13 14:54 | disposition home or self-care (01) ==
LOC: FCATH 11:50
PROVIDERS: ATTEND Internal Medicine Cardiovascular Disease
PROC: B246ZZ4 Ultrasonography of Right and Left Heart, Transesophageal (ICD-10-PCS; principal; 2017-12-13)
DX: I63.9 Cerebral infarction, unspecified (principal); I48.0 Paroxysmal atrial fibrillation; I71.9 Aortic aneurysm of unspecified site, without rupture; I77.9 Disorder of arteries and arterioles, unspecified; N28.9 Disorder of kidney and ureter, unspecified; I10 Essential (primary) hypertension; D63.8 Anemia in other chronic diseases classified elsewhere; G47.33 Obstructive sleep apnea (adult) (pediatric); Z79.01 Long term (current) use of anticoagulants; Z87.891 Personal history of nicotine dependence; Z86.73 Personal history of transient ischemic attack (TIA), and cerebral infarction without residual deficits
CPT/HCPCS: J2250; J3010

== ENCOUNTER 2018-10-16 16:07 | Inpatient (IN) | payer OTHER ==
--- NOTE | 2018-10-16 16:34 | EDPHY ---
H & P Stated Complaint: tripped fell hit head/on eliquis/neck pain Time Seen by Provider: 10/16/18 16:19 HPI/ROS: CHIEF COMPLAINT: "I hit my head" HISTORY OF PRESENT ILLNESS: 83-year-old male history of Eliquis anticoagulation secondary to atrial fibrillation history, arrives via private vehicle with his daughter, not a trauma activation, complaining of mechanical fall, hitting his head. He describes walking through a parking lot at 1:30 p.m. today, tripped on an incongruity, fell forward impacting his frontal region of his head with no loss of consciousness. No headache. No nausea or vomiting. He is also complaining of midline C-spine pain. History of ankylosing spondylitis. Denies peripheral paresthesia, weakness, numbness. This was a mechanical incident with no syncope. Denies: Chest pain, dyspnea, alcohol or drug use, headache, nausea, vomiting, altered mentation. He is here with daughter. PRIMARY CARE PROVIDER: Dr. Len Coronado REVIEW OF SYSTEMS: 10 systems reviewed and negative with the exception of the elements mentioned in the history of present illness PAST MEDICAL/SURGICAL HISTORY: Daily Eliquis secondary atrial fibrillation. Tetanus up-to-date.. Chronic renal insufficiency followed by Dr. Teo Burks SOCIAL HISTORY: denies alcohol use at time of incident. Lives by himself in a home. PHYSICAL EXAM 1) GENERAL: Well-developed, well-nourished, alert and oriented. Appears to be in no acute distress. Answering questions appropriately. 2) HEAD: Normocephalic, frontal ecchymosis and abrasion 3) HEENT: Pupils equal, round, reactive to light bilaterally. Negative Horners. Nasopharynx, oropharynx, clear. No deformity or angulation of nose. No septal hematoma. No rhinorrhea. No oral trauma. Ears bilaterally with normal tympanic membranes. No hemotympanum. No fluid or blood in the external auditory canal. No raccoon eyes. No Stanley sign. Teeth are normally aligned with no gross malocclusion, TMJ bilaterally nontender, facial bones nontender including the zygomatic arch, maxilla mandible. 4) NECK: [facility] triage Cervical collar is on.Cervical collar is removed while holding inline traction and patient is unable to completely differentiate between true midline pain versus just lateral of midline pain.Cervical collar is replaced at that point. 5) LUNGS: Clear to auscultation bilaterally, no wheezes, no rhonchi, no retractions. No obvious signs of trauma. No chest wall pain. No flaring, no grunting. Moving symmetrically. No crepitus. 6) HEART: Regular rate and rhythm, 7) ABDOMEN: No guarding, no rebound, no focal tenderness, no peritoneal signs, no signs of trauma, no ecchymosis 8) MUSCULOSKELETAL: Moving all extremities, no focal areas of tenderness, no obvious trauma. 9) BACK: No midline vertebral tenderness, no fluctuance, no step-off, no obvious trauma, no visual or palpable abnormality. 10) SKIN: No laceration. No abrasion 11) NEURO: Awake, alert, and oriented to person, place and time. Answers questions appropriately. There were no obvious focal neurologic abnormalities. No cerebellar dysfunction. Cranial nerves 2 through to 12 intact. Normal steady gait. Upper and lower extremities bilaterally with strength 5 / 5, reflexes 2+. DIFFERENTIAL DIAGNOSIS: Not necessarily in any particular order, my differential diagnosis includes, but is not limited to, concussion, skull fracture, intraparenchymal contusion, subarachnoid, subdural and epidural hematoma. The patient understands that this diagnosis is provisional and can never be 100% accurate. - Personal History Current Tetanus Diphtheria and Acellular Pertussis (TDAP): Yes - Medical/Surgical History Hx Asthma: No Hx Chronic Respiratory Disease: No Hx Diabetes: No Hx Cardiac Disease: Yes Hx Renal Disease: Yes Hx Cirrhosis: No Hx Alcoholism: No Hx HIV/AIDS: No Hx Splenectomy or Spleen Trauma: No Other PMH: AFIB,ARTHRITIS,ULCER-1990, HIP FX W/ PINS, NECK FUSION, intermittent L arm/shoulder pain/ tia - Social History Smoking Status: Former smoker Constitutional: Initial Vital Signs Temperature (C) 36.5 C 10/16/18 16:14 Heart Rate 59 L 10/16/18 16:14 Respiratory Rate 18 10/16/18 16:14 Blood Pressure 130/60 H 10/16/18 16:14 O2 Sat (%) 94 10/16/18 16:14 O2 Delivery Mode Room Air Allergies/Adverse Reactions: infliximab [From Remicade] Allergy (Verified 10/16/18 18:35) Rash BENZOINE Allergy (Uncoded 10/16/18 18:35) Rash Home Medications: Medication Instructions Recorded Losartan Potassium [Cozaar 25 mg 12.5 mg PO DAILY AT 6PM 04/28/16 (*)] Omeprazole 40 mg PO BID 04/28/16 oxyCODONE IR [Oxycodone Ir (*)] 5 mg PO DAILY PRN 04/28/16 traZODone [traZODONE 100MG (*)] 100 mg PO HS 04/28/16 Acetaminophen [Tylenol ES 500 mg 1,000 mg PO BID 12/09/16 (*)] Cyanocobalamin [Vitamin B12 (*)] 1,000 mcg PO DAILY AT 6PM 12/09/16 Diltiazem HCl [Diltiazem 24Hr Cd] 120 mg PO DAILY AT 6PM 12/09/16 Folic Acid [Folic Acid 1 MG (*)] 1 mg PO DAILY AT 6PM 12/09/16 Myrbetriq 50 mg PO DAILY 12/13/17 Apixaban [Eliquis] 2.5 mg PO BID 10/16/18 Bimatoprost 0.01% [Lumigan 0.01% 1 drops EACHEYE HS 10/16/18 (*)] Fluticasone Nasal [Flonase Nasal 1 sprays NASAL DAILY 10/16/18 [place] (RX)] Solifenacin Succinate [Vesicare 5 5 mg PO DAILY8 10/16/18 MG (*)] Timolol 0.5% [TIMOPTIC 0.5% (*)] 1 drops EACHEYE DAILY 10/16/18 Medical Decision Making - Diagnostics Imaging Results: Imaging Impressions Cervical Spine CT 10/16/18 16:31 Impression: 1. Mildly displaced fractures of the posterior bilateral lateral masses C1. 2. No acute intracranial process. 3. Chronic encephalomalacic changes throughout the brain. White matter microvascular disease is also seen. Findings and recommendations discussed with Cornell Pardo at 1758 hour, . Head CT 10/16/18 16:31 Impression: 1. Mildly displaced fractures of the posterior bilateral lateral masses C1. 2. No acute intracranial process. 3. Chronic encephalomalacic changes throughout the brain. White matter microvascular disease is also seen. Findings and recommendations discussed with Cornell Pardo at 1758 hour, . Images reviewed myself ED Course/Re-evaluation: 4:31 p.m.: Head CT ordered in this patient for trauma for the following indication: Greater than 65 years old, anticoagulated. Will Also obtain imaging of the cervical spine. Care of patient under supervision of secondary supervising physician Dr Stewart Wilson with whom I discussed case. 6:00 p.m.: Consultation with Neurosurgery Dr. Rajput who will consult for the patient's C1 fracture. 6:14 p.m.: Consultation with on-call trauma surgery Dr Vera who recommends ct angiography of neck back, otherwise recommends no further mention from trauma service as the patient has a single system (C1 fracture) injury. Will plan on consultation and admission with hospitalist. 6:30 p.m.: Consultation with Dr. Chaz Morton hospitalist to admit. 6:30 p.m.: Creatinine 2.0. History of chronic renal insufficiency. CT angiography will be held at this time - Data Points Laboratory Results: Laboratory Results 10/16/18 18:15 10/16/18 10/16/18 10/16/18 18:15 18:15 18:15 WBC 16.40 10^3/uL H 10^3/uL (3.80-9.50) RBC 3.60 10^6/uL L 10^6/uL (4.40-6.38) Hgb 12.2 g/dL L g/dL (13.7-17.5) Hct 35.8 % L % (40.0-51.0) MCV 99.4 fL fL (81.5-99.8) MCH 33.9 pg pg (27.9-34.1) MCHC 34.1 g/dL g/dL (32.4-36.7) RDW 13.1 % % (11.5-15.2) Plt Count 235 10^3/uL 10^3/uL (150-400) MPV 9.4 fL fL (8.7-11.7) Neut % (Auto) 83.4 % H % (39.3-74.2) Lymph % (Auto) 8.2 % L % (15.0-45.0) [place] % (Auto) 7.6 % % (4.5-13.0) Eos % (Auto) 0.3 % L % (0.6-7.6) Baso % (Auto) 0.1 % L % (0.3-1.7) Nucleat RBC Rel Count 0.0 % % (0.0-0.2) Absolute Neuts (auto) 13.66 10^3/uL H 10^3/uL (1.70-6.50) Absolute Lymphs (auto) 1.35 10^3/uL 10^3/uL (1.00-3.00) Absolute Monos (auto) 1.25 10^3/uL H 10^3/uL (0.30-0.80) Absolute Eos (auto) 0.05 10^3/uL 10^3/uL (0.03-0.40) Absolute Basos (auto) 0.02 10^3/uL 10^3/uL (0.02-0.10) Absolute Nucleated RBC 0.00 10^3/uL 10^3/uL (0-0.01) Immature Gran % 0.4 % % (0.0-1.1) Immature Gran # 0.07 10^3/uL 10^3/uL (0.00-0.10) PT Pending INR Pending APTT Pending Sodium Pending Potassium Pending Chloride Pending Carbon Dioxide Pending Anion Gap Pending BUN Pending Creatinine Pending Estimated GFR Pending Glucose Pending Calcium Pending Departure - Departure Disposition: [facility] Inpatient Acute Clinical Impression: C1 cervical fracture, Head injury due to trauma, Atrial fibrillation Condition: Fair
[2018-10-16] MEDS ORDERED: fentaNYL 100 MCG/2 ML INJ IVP ONE (18:28)
[2018-10-16 18:31] LABS: PLATELET COUNT 235 10^3/uL (150-400)
[2018-10-16 18:43] LABS: INR 1.15 (0.83-1.16); PROTIME(PATIENT) 14.9 SEC (12.0-15.0)
[2018-10-16] MEDS ORDERED: ACETAMINOPHEN 325 MG TAB PO PRN (18:46)
[2018-10-16] MEDS ORDERED: HYDROmorphONE/DILAUDID 1 MG/ML INJ IVP PRN (18:46)
[2018-10-16] MEDS ORDERED: ONDANSETRON 4 MG/2 ML VIAL IVP PRN (18:46)
[2018-10-16] MEDS ORDERED: ONDANSETRON DISINTEGRATING 4 MG TAB PO PRN (18:46)
[2018-10-16] MEDS ORDERED: POLYETHYLENE GLYCOL 3350 17 GM PKT PO PRN (18:48)
[2018-10-16] MEDS ORDERED: LACTULOSE 20 GM/30 ML UDCUP PO PRN (18:48)
[2018-10-16] MEDS ORDERED: MAGNESIUM HYDROXIDE 30 ML UDCUP PO PRN (18:48)
[2018-10-16] MEDS ORDERED: BISACODYL 10 MG SUPP PR PRN (18:48)
[2018-10-16] MEDS ORDERED: NS 1,000 ML IV SCH (19:15)
--- NOTE | 2018-10-16 19:46 | CPEKG ---
Test Reason : OPEN Blood Pressure : / mmHG Vent. Rate : 061 BPM Atrial Rate : 061 BPM P-R Int : 217 ms QRS Dur : 095 ms QT Int : 417 ms P-R-T Axes : 082 082 062 degrees QTc Int : 420 ms Sinus rhythm Borderline prolonged KS interval Borderline right axis deviation Confirmed by Stewart Wilson ([id number]) on 10/16/2018 7:46:36 PM Referred By: Confirmed By:Stewart Wilson
--- NOTE | 2018-10-16 20:07 | PDGENHP ---
History and Physical - Chief Complaint Mechanical fall - History of Present Illness 83 y/o male with extensive health history presents to the ED after sustaining a mechanical fall. He reports having one beer at lunch with a friend and was walking from an area with grass to uneven cement when the transition of textures caused him to fall face first into the cement area. He denies LOC, reports feeling "dazed" for a few moments and didn't move. No noted pain anywhere else to the body. Endorses headache. Denies n/v, fevers, chills, diarrhea, dysuria, lightheadedness. He is wearing a hard brace c-collar. Cervical spine CT: mildly displaced fractures of the posterior bilateral lateral masses C1, no acute intracranial process, chronic encephalomalacic changes throughout the brain. Head CT: reports the same as cervical spine. Past Medical/Surgical History 1. Atrial Fibrillation (on Eliquis) 2. Chronic renal insufficieny 3. TIA x 3 (last one was October 2017) 4. Ankylosing Spondylitis 5. CAD 6. Dilated ascending aorta 7. Anemia of Chronic Disease 8. VADIM 9. Neck Fusion 10. Arthritis 11. Hip fracture with pins Social 1. Lives in [place] independently. Does not use any ambulation devices. 2. Former smoker. Quit in his 30s. Denies illicit drug use. Drinks either one glass of wine or a beer/day 3. Daughter, Miranda, at bedside History Information - Allergies/Home Medication List Allergies/Adverse Reactions: infliximab [From Remicade] Allergy (Verified 10/16/18 18:35) Rash BENZOINE Allergy (Uncoded 10/16/18 18:35) Rash Home Medications: Losartan Potassium [Cozaar 25 mg (*)] 12.5 mg PO DAILY AT 6PM 04/28/16 [Last Taken 10/15/18] Omeprazole 40 mg PO BID 04/28/16 [Last Taken 10/16/18] oxyCODONE IR [Oxycodone Ir (*)] 5 mg PO DAILY PRN 04/28/16 [Last Taken 12/11/17 22:00] traZODone [traZODONE 100MG (*)] 100 mg PO HS 04/28/16 [Last Taken 10/15/18] Acetaminophen [Tylenol ES 500 mg (*)] 1,000 mg PO BID 12/09/16 [Last Taken 10/16] Cyanocobalamin [Vitamin B12 (*)] 1,000 mcg PO DAILY AT 6PM 12/09/16 [Last Taken 10/15/18] Diltiazem HCl [Diltiazem 24Hr Cd] 120 mg PO DAILY AT 6PM 12/09/16 [Last Taken ] Folic Acid [Folic Acid 1 MG (*)] 1 mg PO DAILY AT 6PM 12/09/16 [Last Taken 10/15] Myrbetriq 50 mg PO DAILY 12/13/17 [Last Taken 10/16/18] Apixaban [Eliquis] 2.5 mg PO BID 10/16/18 [Last Taken 10/16/18] Bimatoprost 0.01% [Lumigan 0.01% (*)] 1 drops EACHEYE HS 10/16/18 [Last Taken ] Fluticasone Nasal [Flonase Nasal [place] (RX)] 1 sprays NASAL DAILY 10/16/18 [ Last Taken 10/16/18] Solifenacin Succinate [Vesicare 5 MG (*)] 5 mg PO DAILY8 10/16/18 [Last Taken ] Timolol 0.5% [TIMOPTIC 0.5% (*)] 1 drops EACHEYE DAILY 10/16/18 [Last Taken ] I have personally reviewed and updated: family history, medical history, social history, surgical history Past Medical History: See HPI List - Surgical History Additional surgical history: See HPI list - Family History Positive for: stroke (Mother) - Social History Smoking Status: Former smoker Alcohol Use: Occasionally Drug Use: None Review of Systems Review of Systems: ROS: 10pt was reviewed & negative except for what was stated in HPI & below Constitutional: Reports: recent injury, weakness EENMT: Reports: no symptoms Cardiac: Reports: no symptoms Respiratory: Reports: no symptoms Gastrointestinal: Reports: constipation Genitourinary: Reports: no symptoms Muscolosketal: Reports: neck pain Skin: Reports: dryness Neurological: Reports: headache, weakness Hematologic/Lymphatic: Reports: anemia Immunologic/Allergy: Reports: other (See allergy list) Physical Exam Physical Exam: Lab data and imaging were reviewed EKG: SR Temp Pulse Resp BP Pulse Ox 36.8 C 63 16 140/80 H 94 11/27/18 18:00 10/16/18 19:45 10/16/18 19:45 10/16/18 19:45 10/16/18 19:45 Constitutional: no apparent distress, appears nourished Eyes: PERRL, anicteric sclera, EOMI Ears, Nose, Mouth, Throat: moist mucous membranes, hearing normal, ears appear normal, no oral mucosal ulcers Cardiovascular: regular rate and rhythym, no murmur, rub, or gallop, No edema Peripheral Pulses: 2+: dorsalis-pedis (R) (Radial 2+), dorsalis-pedis (L) ( Radial 2+) Respiratory: no respiratory distress, no rales or rhonchi, clear to auscultation Gastrointestinal: normoactive bowel sounds, soft, non-tender abdomen, no palpable masses Genitourinary: no bladder fullness, no bladder tenderness Skin: warm, normal color, no fluctuance, no induration, abrasion (Abrasion to forehead; laceration and tender lump), No mottled Musculoskeletal: generalized weakness Neurologic: AAOx3, sensation intact bilaterally, weakness, CN II-XII Intact Psychiatric: interacting appropriately, not anxious, not encephalopathic, thought process linear Lymph, Heme, Immunologic: no cervical LAD, no supraclavicular LAD Lab Data & Imaging Review 10/16/18 18:15 10/16/18 18:15 WBC 16.40 10^3/uL (3.80-9.50) H 10/16/18 18:15 RBC 3.60 10^6/uL (4.40-6.38) L 10/16/18 18:15 Hgb 12.2 g/dL (13.7-17.5) L 10/16/18 18:15 POC Hgb 12.9 gm/dL (13.7-17.5) L 10/16/18 18:31 Hct 35.8 % (40.0-51.0) L 10/16/18 18:15 POC Hct 38 % (40-51) L 10/16/18 18:31 MCV 99.4 fL (81.5-99.8) 10/16/18 18:15 MCH 33.9 pg (27.9-34.1) 10/16/18 18:15 MCHC 34.1 g/dL (32.4-36.7) 10/16/18 18:15 RDW 13.1 % (11.5-15.2) 10/16/18 18:15 Plt Count 235 10^3/uL (150-400) 10/16/18 18:15 MPV 9.4 fL (8.7-11.7) 10/16/18 18:15 Neut % (Auto) 83.4 % (39.3-74.2) H 10/16/18 18:15 Lymph % (Auto) 8.2 % (15.0-45.0) L 10/16/18 18:15 [place] % (Auto) 7.6 % (4.5-13.0) 10/16/18 18:15 Eos % (Auto) 0.3 % (0.6-7.6) L 10/16/18 18:15 Baso % (Auto) 0.1 % (0.3-1.7) L 10/16/18 18:15 Nucleat RBC Rel Count 0.0 % (0.0-0.2) 10/16/18 18:15 Absolute Neuts (auto) 13.66 10^3/uL (1.70-6.50) H 10/16/18 18:15 Absolute Lymphs (auto) 1.35 10^3/uL (1.00-3.00) 10/16/18 18:15 Absolute Monos (auto) 1.25 10^3/uL (0.30-0.80) H 10/16/18 18:15 Absolute Eos (auto) 0.05 10^3/uL (0.03-0.40) 10/16/18 18:15 Absolute Basos (auto) 0.02 10^3/uL (0.02-0.10) 10/16/18 18:15 Absolute Nucleated RBC 0.00 10^3/uL (0-0.01) 10/16/18 18:15 Immature Gran % 0.4 % (0.0-1.1) 10/16/18 18:15 Immature Gran # 0.07 10^3/uL (0.00-0.10) 10/16/18 18:15 PT 14.9 SEC (12.0-15.0) 10/16/18 18:15 INR 1.15 (0.83-1.16) 10/16/18 18:15 APTT 29.7 SEC (23.0-38.0) 10/16/18 18:15 POC Sodium 142 mEq/L (135-145) 10/16/18 18:31 Sodium 138 mEq/L (135-145) 10/16/18 18:15 POC Potassium 4.7 mEq/L (3.3-5.0) 10/16/18 18:31 Potassium 4.9 mEq/L (3.3-5.0) 10/16/18 18:15 POC Chloride 106 mEq/L (97-110) 10/16/18 18:31 Chloride 104 mEq/L (97-110) 10/16/18 18:15 Carbon Dioxide 26 mEq/l (22-31) 10/16/18 18:15 Anion Gap 8 mEq/L (6-14) 10/16/18 18:15 POC BUN 39 mg/dL (7-23) H 10/16/18 18:31 BUN 41 mg/dL (7-23) H 10/16/18 18:15 Creatinine 1.8 mg/dL (0.7-1.3) H 10/16/18 18:15 POC Creatinine 2.0 mg/dL (0.7-1.3) H 10/16/18 18:31 Estimated GFR 36 10/16/18 18:15 Glucose 90 mg/dL (70-100) 10/16/18 18:15 POC Glucose 93 mg/dL (70-100) 10/16/18 18:31 Calcium 9.7 mg/dL (8.5-10.4) 10/16/18 18:15 Assessment & Plan Plan: 83 y/o male with extensive health history sustained a C1 fracture after falling face first onto cement concrete. 1. Cervical fracture -Keep hard collar on for now -Neurosurgery consulted and aware; Dr. Rajput will evaluate the pt tomorrow morning 2. A-Fib -Hold Eliquis for now -Heparin Subq 3. Headache -Pain medications PO/IVP PRN -Monitor for altered mental status 4. Generalized weakness -PT/OT consult and work with pt; strengthening and stamina exercises Chronic conditions: 1. Atrial Fibrillation: discussed above 2. Chronic renal insufficiency 3. Ankylosing Spondylitis 4. CAD 5. Dilated ascending aorta 6. Anemia of Chronic Disease 8. VADIM 9. Arthritis 10. TIA Diet: Renal now, NPO at midnight tonight for possible surgery tomorrow VTE ppx: SCDs, Hold his night dose and AM dose of eliquis tonight, heparin subq Code: DNR Dispo: Admit to inpatient
--- NOTE | 2018-10-16 20:27 | HOSPPROG ---
Hospitalist Progress Note Assessment/Plan: I have personally seen and evaluated patient. I agree with assessment and plan as outlined by MANOJ Calderon. Objective: Vital Signs Temp Pulse Resp BP Pulse Ox 36.8 C 63 16 140/80 H 94 10/16/18 18:00 10/16/18 19:45 10/16/18 19:45 10/16/18 19:45 10/16/18 19:45 PT 14.9 SEC (12.0-15.0) 10/16/18 18:15 INR 1.15 (0.83-1.16) 10/16/18 18:15 ICD10 Worksheet Patient Problems: Problems Problem Status Onset Atrial fibrillation Acute C1 cervical fracture Acute Head injury due to trauma Acute Brain mass Acute Forehead laceration Acute
[2018-10-16] MEDS: SENNOSIDES/DOCUSATE SODIUM TAB PO SCH (20:46)
[2018-10-16] MEDS: PANTOPRAZOLE SODIUM 40 MG TAB PO SCH (20:46)
[2018-10-16] MEDS: oxyCODONE IR 5 MG TAB PO PRN ×2 (20:46→22:10)
[2018-10-16] MEDS ORDERED: BIMATOPROST 0.01% 2.5 ML OPHT.BTL EACHEYE SCH (21:00)
[2018-10-16] MEDS ORDERED: traZODone 100 MG TAB PO SCH (21:00)
[2018-10-16] MEDS: HEPARIN 5,000 UNIT/0.5 ML INJ SC SCH (22:10)
[2018-10-17] MEDS: HEPARIN 5,000 UNIT/0.5 ML INJ SC SCH (05:38)
[2018-10-17] MEDS: oxyCODONE IR 5 MG TAB PO PRN (05:44)
[2018-10-17 07:28] VITALS: BP 151/80
[2018-10-17] MEDS ORDERED: SOLIFENACIN SUCCINATE 5 MG TAB PO SCH (08:00)
[2018-10-17] MEDS: SENNOSIDES/DOCUSATE SODIUM TAB PO SCH (08:50)
[2018-10-17] MEDS: PANTOPRAZOLE SODIUM 40 MG TAB PO SCH (08:50)
[2018-10-17] MEDS ORDERED: TIMOLOL 0.5% 15 ML OPHT.BTL EACHEYE SCH (09:00)
[2018-10-17] MEDS ORDERED: FLUTICASONE NASAL 120 SPRAYS/16 GM MDI EACHNARE SCH (09:00)
--- NOTE | 2018-10-17 10:40 | PDMN ---
Medical Necessity Medical necessity: Pt meets IP criteria as of 10/16/2018 per MD and BRAN TYLER- ( Musculoskeletal Disease); est los > 2 mn for ongoing tx and management of C1 fracture; requiring ortho consult, IV pain medication and therapies. Comorbid advanced age, afib, anemia, arthritis, CAD, chronic renal insuuiciency and ankylosing spondylitis.
--- NOTE | 2018-10-17 10:57 | PDIAF ---
- Diagnosis Diagnosis: c1 fx Code Status: Do Not Resuscitate - Medication Management Discharge Medications: electronically signed and located in the Home Medication List. PICC Care - Routine: N/A - Orders Services needed: Home Care, Physical Therapy, Occupational Therapy, Speech Language Pathologist Home Care Face to Face: I certify that this patient was under my care and that I had the required [id number] encounter meeting the encounter requirements on the discharge day. My findings support the fact that the patient is homebound as defined in Home Care Face to Face Continued: CMS Chapter 7 Medicare Benefits Manual 30.1.1 , The condition of the patient is such that there exists a normal inability to leave home and consequently, leaving home would require a considerable and taxing effort. Diet Recommendation: no restrictions on diet - Follow Up Care Current Providers and Referrals: GIANNA MORTON [Primary Care Provider] - As per Instructions
--- NOTE | 2018-10-17 11:52 | ASMTLACE ---
LACE Length of stay for Answers: 2 days current admission Acuity / Level of Answers: Yes Care: Did the patient have an inpatient admission? Comorbidities - select Answers: Cerebrovascular disease all that apply (CVA, TIA, aneurysms, vasc ular dementia) Coronary Artery Disease Moderate or severe liver or renal disease Opioid dependence / Chronic pain Other Notes: AFib # of Emergency department Answers: 1-2 visits in the last 6 months Score: 18 Date Signed: 10/17/2018 11:51 AM Electronically Signed By:GREYSON Kay
--- NOTE | 2018-10-17 12:04 | ASMTCMCOM ---
CM Note CM Note Notes: Pt has C1 fx after a fall. Pt resides alone. OT rec home/HHC, PT rec HHC, [facility] rec [facility]. Pt medically stable for d/c with [facility] PT/OT/[facility]. Orders sent in [employer]. Pt son/dghtr to be with pt at home and will transport home. Date Signed: 10/17/2018 12:03 PM Electronically Signed By:GREYSON Kay
--- NOTE | 2018-10-17 14:24 | ASDISCHSUM ---
Discharge Information Plan Status:Home with Home Health Medically Cleared to Leave: Discharge Date:10/17/2018 02:18 PM CM D/C Disposition:Home Health Service ADT D/C Disposition:Home Health Service Projected Discharge Date:10/17/2018 11:00 AM Transportation at D/C: Discharge Delay Reason: Follow-Up Date:10/17/2018 11:00 AM Discharge Slot: Final Diagnosis: Placement Information Referral Type:*Home Health Care Services Referral ID:[id number] Provider Name:[facility] Address 1:[address] [address] Phone Number: Address 2: Fax Number: [facility]:[place] Selection Factors: State:[place] Patient Contact Information Contact Name:LEE Relationship:Son Address: Work Phone: [facility] Phone: [facility] Code:[place] Email: Financial Information Financial Class:Medicare Primary Plan Desc:MEDICARE INPATIENT Primary Plan Number:[id number] Secondary Plan Desc:SUSAN Secondary Plan Number:[id number] Assessment Information LACE LACE Length of stay for Answers: 2 days current admission Acuity / Level of Answers: Yes Care: Did the patient have an inpatient admission? Comorbidities - select Answers: Cerebrovascular disease all that apply (CVA, TIA, aneurysms, vasc ular dementia) Coronary Artery Disease Moderate or severe liver or renal disease Opioid dependence / Chronic pain Other Notes: AFib # of Emergency department Answers: 1-2 visits in the last 6 months Score: 18 Date Signed: 10/17/2018 11:51 AM Electronically Signed By:GREYSON Kay [facility] CM Progress Note CM Note CM Note Notes: Pt has C1 fx after a fall. Pt resides alone. OT rec home/HHC, PT rec HHC, [facility] rec HHC. Pt medically stable for d/c with [facility] PT/OT/[facility]. Orders sent in [employer]. Pt son/dghtr to be with pt at home and will transport home. Date Signed: 10/17/2018 12:03 PM Electronically Signed By:GREYSON Kay Intervention Information Intervention Type:*Incorrect Registration Date of Service:10/16/2018 10:31 AM Patient Type:Inpatient Staff Member:Cami Gan Hours: Discipline: Severity: Comment:
[2018-10-17] MEDS ORDERED: DILTIAZEM CD 120 MG CAP PO SCH (18:00)
[2018-10-17] MEDS ORDERED: CYANO/VITAMIN B12 1000 MCG TAB PO SCH (18:00)
[2018-10-17] MEDS ORDERED: LOSARTAN POTASSIUM 25 MG TAB PO SCH (18:00)
[2018-10-17] MEDS ORDERED: FOLIC ACID 1 MG TAB PO SCH (18:00)
--- NOTE | 2018-10-17 18:14 | GCON ---
DATE OF CONSULTATION: 10/17/2018 REASON FOR CONSULTATION: C1 fracture, status post ground-level fall. HISTORY OF PRESENT ILLNESS: The patient is a very pleasant, 83-year-old gentleman, who has a fairly extensive medical history, who states that he was at lunch with his friend on the September, when he was walking across the lawn and tripped and fell. He had a mechanical fall and he hit his forehead. He denied loss of consciousness, but did feel dazed at the moment. No associated tingling, numbness, pain, or weakness of the upper and lower extremities. No associated loss of bowel or bladder function. He did develop acute onset of neck pain. He was brought to [facility] for further evaluation and management. Imaging studies demonstrated cervical spine fracture for which a neurosurgical consultation was requested. He has been admitted to the medical service. This morning, the patient continues to have some ongoing neck pain. Continues to deny any upper or lower extremity symptoms including any weakness. He is comfortable in sitting in a cervical collar. PAST MEDICAL HISTORY: 1. Atrial fibrillation, for which he is on Eliquis. 2. Chronic renal insufficiency. 3. TA x3. 4. Ankylosing spondylitis. 5. Coronary artery disease. 6. Dilated ascending aorta. 7. Anemia of chronic disease. 8. VADIM. 9. Arthritis. PAST SURGICAL HISTORY: 1. Some type of neck fusion. 2. Hip fracture with pins. SOCIAL HISTORY: The patient lives independently in [facility]. He is able to ambulate independently. He is a former smoker and quit in his 30s. No other illicit drug use. He does drink a glass of wine or beer every day. He has a daughter, Miranda, and a son who is currently at the bedside. ALLERGIES: 1. Remicade. 2. Benzoin. MEDICATIONS: Prior to admission: 1. Cozaar 12.5 mg p.o. at bedtime. 2. Omeprazole 40 mg p.o. twice daily. 3. Oxycodone 5 mg p.o. daily p.r.n. 4. Trazodone 100 mg p.o. at bedtime. 5. Tylenol 1000 mg p.o. twice daily. 6. Vitamin B12 1000 mcg p.o. daily. 7. Diltiazem 120 mg p.o. daily. 8. Folic acid 1 mg p.o. q.p.m. 9. Myrbetriq 50 mg p.o. daily. 10. Eliquis 2.5 mg p.o. twice daily. 11. Lumigan 0.01% eye drops to each eye daily. 12. Flonase nasal spray daily. 13. VESIcare 5 mg p.o. daily. 14. Timolol 0.5% 1 drop each eye daily. REVIEW OF SYSTEMS: Complete 10-point review of systems from the patient's intake form reviewed by myself, significant only for those noted above in the HPI. PHYSICAL EXAMINATION: VITAL SIGNS: Blood pressure 139/72, heart rate 62, respiratory rate 16, saturating 96% on room air, temperature is 36.4. GENERAL: The patient is sitting in the bed. No acute distress. He is quite pleasant. Cooperative with examination. His son is at the bedside. He is currently wearing a cervical collar. Mentation is appropriate. HEENT: Patient has obvious abrasions to his forehead. Remainder of the scalp is atraumatic. Pupils are equal, round, and reactive to light bilaterally. Extraocular movements are intact. The mucous membranes are somewhat dry. NEUROLOGIC: Cranial nerves 2 through 12 are intact except diminished hearing to light finger scratch. Pupils are equal, round, react to light bilaterally. Extraocular movements intact. Tongue protrudes midline. Uvula and palate elevate symmetrically. He has intact sensation to light touch on his face bilaterally. Diminished hearing to light scratch bilaterally, but symmetric shoulder shrug. 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 Sensory exam, he has intact sensation to light touch throughout all major dermatomes of the bilateral upper and lower extremities throughout. Reflexes, he has no Sorenson's, no Babinski, with 1+ reflexes at the bilateral brachioradialis and patella. Other, patient has some cervical spine tenderness and C-collar is in place. MEDICAL DECISION MAKING: Patient underwent a head CT without contrast, as well as a cervical spine CT without contrast reviewed by myself on the [facility] PAC system, completed on the September. Head CT demonstrates mildly displaced fracture of the posterior bilateral lateral masses of C1, with no acute intracranial process. There is chronic encephalomalacia changes throughout the brain with white matter vascular changes. CT of the cervical spine without contrast demonstrates mildly displaced fracture of the posterior bilateral lateral mass C1 with evidence of ankylosing spondylitis throughout the remainder of the cervical spine and degenerative disease. ASSESSMENT/PLAN: The patient is a very pleasant, 83-year-old gentleman who has known ankylosing spondylitis with prior cervical spine fusions who presents with a mechanical fall and evidence of C1 posterior ring fracture including the lateral masses. At this point, it is unlikely that he will require surgical intervention. We will likely treat him in a cervical collar for approximately 8 weeks and potentially 12 weeks depending on how he heals. He can be discharged from the hospital from a neurosurgical standpoint, with plans for cervical collar to be in place throughout the duration of his treatment. In a very small chance would he require surgical intervention which I described to both him and his son which would include a posterior cervical fusion. Given his age, we would like to avoid any type of surgical intervention. At this point, we will plan to see him back in our clinic in approximately 6 weeks with AP lateral cervical spine x-rays including an Odontoid view. We will plan to sign off. PT/OT would be recommended given that he lives independently and will be in a cervical collar. We recommended no driving given his collar. Thank you for this consultation. Please do not hesitate to contact us if there are any questions. /[id number]/MODL MTDD
--- NOTE | 2018-10-17 18:56 | GDS ---
DISCHARGE DIAGNOSES: 1. Cervical fracture. 2. History of atrial fibrillation. 3. Headache. CONSULTATIONS: Dr. Trivedi of neurosurgery. STUDIES AND PROCEDURES DONE: 1. Cervical spine CT. 2. Head CT. PHYSICAL EXAM: GENERAL: The patient is alert. VITAL SIGNS: Afebrile at 36.7, pulse is 68, respirat ory rate is 14, blood pressure is 151/80, saturating 94% on room air. [facility]. HOSPITAL COURSE: The patient is an 83-year-old male who presented to the emergency room after sustai darlene a mechanical fall. He was evaluated and determined to have a cervical fracture. The patient dill s a hard collar in place, and is to keep this intact at all times. He did receive a consultation fro m Dr. Trivedi, I have confirmed with Neurosurgery that they are comfortable with the patient being dis charged today with a hard collar in place. He does have a history of atrial fibrillation. His Eliqu is has been continued and he is complaining of a mild headache. CT of the head demonstrated nothing acute. He will be discharged home with home care after being evaluated by Physical Therapy and Occup ational Therapy. We will have speech therapy at home as well. There are no pending studies. DISCHARGE MEDICATIONS: Please refer to EMR form. New medications include oxycodone IR as well as Zo marcus. FOLLOWUP: Followup will be with his primary care physician, Dr. Len Trevino as well as Dr. Trivedi of Neurosurgery. I have discussed the patient's disposition with his son who is in agreement with is plan. /[id number]/MODL
--- NOTE | 2018-10-17 19:11 | GCON ---
DATE OF CONSULTATION: 10/17/2018 CHIEF COMPLAINT: Mechanical fall. HISTORY OF PRESENT ILLNESS: The patient is an 83-year-old man who fell yesterday afternoon. He was walking from a grassy area to cement and fell face 1st into the cement area. He is on Eliquis. He d enied loss of consciousness. On tertiary survey today, he reports that yesterday at 4 a.m. he had in creased pain in his right upper thigh that has been improving. He had a CT scan performed in the [facility] room of his head and C-spine which showed no acute intracranial process and he has mildly disp laced fractures of the posterior bilateral masses at C1. This morning he is eager to go home. PAST MEDICAL HISTORY: 1. Atrial fibrillation. 2. Chronic renal insufficiency. 3. TIA x3. 4. Ankylosing spondylitis. 5. Coronary artery disease. 6. History of hip fracture, status post pins. FAMILY HISTORY: Noncontributory. SOCIAL HISTORY: He lives in [place] independently. He quit smoking in his 30s. He does drink a gl ass a wine or beer daily. ALLERGIES: Remicade and benzoin. REVIEW OF SYSTEMS: A 10-point review of systems negative with the exception of some weakness and leg pain that is improving. Headache has improved. PHYSICAL EXAMINATION: VITAL SIGNS: 36.7, 68, 151/80, 14, 94% room air. GENERAL: Pleasant, sitting u p in bed. Thin, well-groomed, still wearing his pressed trousers in bed. HEENT: Contusion over fron kal aspect of head. Otherwise, no ecchymosis. Pupils equal and round. No otorrhea. No rhinorrhea. C-collar in place. Strength 5/5 upper and lower extremity. LUNGS: Clear to auscultation bilatera lly. No increased work of breathing. CARDIAC: Regular rate. ABDOMEN: Bowel sounds present. Soft, nontender. MUSCULOSKELETAL: I removed his pants. There is no ecchymosis on his lower legs. He has 5 /5 strength upper and lower extremities. He is not tender to palpation over trochanter or the femur. NEURO: Grossly intact. LAB RESULTS: I reviewed the results of his CT scan and of his head and C-spine. IMPRESSION AND PLAN: The patient is an 83-year-old man status post mechanical fall with fracture of the posterior bilateral mass C1. Dr. Nobles had recommended a CTA be performed last night. The dionne garza does have chronic renal insufficiency with a creatinine around 2. Neurosurgery is not planning on intervention at this time. I did ask them to weigh in if the risk of a CTA outweighs the benefit . The patient's leg pain is improving. He has no ecchymosis over the area. If the pain still haritha nues after his therapies, then I will order imaging. Otherwise there was no pain to palpation and he reports it is getting better. No specific followup needed from the trauma service. /[id number]/MODL
== END 2018-10-17 14:18 | disposition home health service (06) | DRG 552 ==
LOC: OBSVTOIN 19:44 → F3N 20:07
PROVIDERS: ADMIT Internal Medicine; ATTEND Internal Medicine
DX: S12.090A Other displaced fracture of first cervical vertebra, initial encounter for closed fracture (principal); W01.0XXA Fall on same level from slipping, tripping and stumbling without subsequent striking against object, initial encounter; Y92.481 Parking lot as the place of occurrence of the external cause; R51 Headache; I48.91 Unspecified atrial fibrillation; M45.9 Ankylosing spondylitis of unspecified sites in spine; I25.10 Atherosclerotic heart disease of native coronary artery without angina pectoris; I77.811 Abdominal aortic ectasia; G47.33 Obstructive sleep apnea (adult) (pediatric); D63.8 Anemia in other chronic diseases classified elsewhere; N18.9 Chronic kidney disease, unspecified; Z79.01 Long term (current) use of anticoagulants; Z98.1 Arthrodesis status; Z87.891 Personal history of nicotine dependence; Z86.73 Personal history of transient ischemic attack (TIA), and cerebral infarction without residual deficits
CPT/HCPCS: 82435-PO; 82565-PO; 82947-PO; 84132-PO; 84295-PO; 84520-PO; 85014-PO; 92523-GN; 96374; 97162-GP; 97166-GO; 97535-GO; G8978-GP-CK; G8979-GP-CJ; G8987-GO-CI; G8988-GO-CI; G8989-GO-CI; G9168-GN-CJ; G9169-GN-CI; J1170; J1644; J3010

== ENCOUNTER 2018-10-19 05:32 | Emergency (ER) | payer OTHER ==
--- NOTE | 2018-10-19 05:41 | EDPHY ---
H & P Time Seen by Provider: 10/19/18 05:41 HPI/ROS: HPI CHIEF COMPLAINT: Headache. HISTORY OF PRESENT ILLNESS: 83-year-old male, presents emergency room with headache. Patient was recently here in the hospital on hospitalized with a C1 fracture, he has a history of AFib on Eliquis. He presents emergency room complaining worsening posterior headache. He did fall initially striking the front of his head, sustained a cervical spine fracture. He remains in a hard cervical collar. Patient denies any chest pain or shortness of breath. Main complaint posterior headache. He did take Percocet prior to arrival with improvement. He still complains of a 5/10 posterior headache. He denies any focal numbness or tingling or focal weakness, denies any arm pain. He remains in his rigid cervical collar. Past Medical History: AFib on Eliquis. Past Surgical History: No recent surgery Social History: Denies drugs alcohol tobacco. Family History: Noncontributory ROS REVIEW OF SYSTEMS: 10 Systems were reviewed and negative with the exception of the elements mentioned in the history of present illness. Exam Constitutional triage nursing summary reviewed, vital signs reviewed, awake/ alert. Eyes normal conjunctivae and sclera, EOMI, PERRLA. HENT head/neck in rigid cervical [place] collar, ecchymosis to the forehead mid forehead. Otherwise atraumatic head and neck exam. moist mucus membranes, no epistaxis, neck supple/ no meningismus, no raccoon eyes. Respiratory clear to auscultation bilaterally, normal breath sounds, no respiratory distress, no wheezing. Cardiovascular rate normal, regular rhythm, no murmur, no edema, distal pulses normal. Gastrointestinal soft, non-tender, no rebound, no guarding, normal bowel sounds, no distension, no pulsatile mass. Genitourinary no CVA tenderness. Musculoskeletal no midline vertebral tenderness, full range of motion, no calf swelling, no tenderness of extremities, no meningismus, good pulses, neurovascularly intact. Skin pink, warm, & dry, no rash, skin atraumatic. Neurologic awake, alert and oriented x 3, AAOx3, moves all 4 extremities equally, motor intact, sensory intact, CN II-XII intact, normal cerebellar, normal vision, normal speech. Psychiatric normal mood/affect. Heme/Lymph/Immune no lymphadenopathy. Differential Diagnosis: Includes but is not limited to in a particular order closed-head injury, intracranial bleed, delayed bleed, concussion, pain from being in a cervical collar from a C1 fracture. Medical Decision Making: Plan for this patient will reimage with CT scan head without contrast to make sure there is not a delayed bleed. Will give a dose of Dilaudid 2 mg p.o.. For pain control. Re-evaluate. Re-evaluation: CT scan head without contrast negative for acute bleed. Called to me by Dr. Livingston. Patient is re-evaluated. 7:01 a.m. Resting comfortably. States he feels much better after Dilaudid. Patient CT scan head without contrast negative for acute bleed Patient presents emergency room with worsening headache after recent fall. His repeat CT scan today shows no evidence of acute bleed. Patient feeling better after p.o. Dilaudid Patient like to go home. Return precautions discussed. Source: Patient - Medical/Surgical History Hx Asthma: No Hx Chronic Respiratory Disease: No Hx Diabetes: No Hx Cardiac Disease: Yes Hx Renal Disease: Yes Hx Cirrhosis: No Hx Alcoholism: No Hx HIV/AIDS: No Hx Splenectomy or Spleen Trauma: No Other PMH: AFIB,ARTHRITIS,ULCER-1990, HIP FX W/ PINS, NECK FUSION, intermittent L arm/shoulder pain/ tia - Social History Smoking Status: Former smoker Constitutional: Initial Vital Signs Temperature (C) 36.8 C 10/19/18 05:45 Heart Rate 65 10/19/18 05:45 Respiratory Rate 18 10/19/18 05:45 Blood Pressure 120/77 10/19/18 05:45 O2 Sat (%) 91 L 10/19/18 05:45 O2 Delivery Mode Room Air Allergies/Adverse Reactions: infliximab [From Remicade] Allergy (Verified 10/16/18 18:35) Rash BENZOINE Allergy (Uncoded 10/16/18 18:35) Rash Home Medications: Medication Instructions Recorded Losartan Potassium [Cozaar 25 mg 12.5 mg PO DAILY AT 6PM 04/28/16 (*)] Omeprazole 40 mg PO BID 04/28/16 traZODone [traZODONE 100MG (*)] 100 mg PO HS 04/28/16 Acetaminophen [Tylenol ES 500 mg 1,000 mg PO BID 12/09/16 (*)] Cyanocobalamin [Vitamin B12 (*)] 1,000 mcg PO DAILY AT 6PM 12/09/16 Diltiazem HCl [Diltiazem 24Hr Cd] 120 mg PO DAILY AT 6PM 12/09/16 Folic Acid [Folic Acid 1 MG (*)] 1 mg PO DAILY AT 6PM 12/09/16 Myrbetriq 50 mg PO DAILY 12/13/17 Apixaban [Eliquis] 2.5 mg PO BID 10/16/18 Bimatoprost 0.01% [Lumigan 0.01% 1 drops EACHEYE HS 10/16/18 (*)] Fluticasone Nasal [Flonase Nasal 1 sprays NASAL DAILY 10/16/18 Labelle] Solifenacin Succinate [Vesicare 5 5 mg PO DAILY8 10/16/18 MG (*)] Timolol 0.5% [TIMOPTIC 0.5% (*)] 1 drops EACHEYE DAILY 10/16/18 Ondansetron Odt [Zofran Odt 4 mg 4 mg PO Q4 #30 tab 10/17/18 (*)] Sennosides/Docusate Sodium 1 - 2 tab PO BID tab 10/17/18 [Senokot-S] oxyCODONE IR [Oxycodone Ir (*)] 5 mg PO Q3HRS PRN #15 tab 10/17/18 Medical Decision Making - Data Points Medications Given: Discontinued Medications Hydromorphone HCl (Dilaudid) 2 mg PO EDNOW ONE Stop: 10/19/18 05:48 Last Admin: 10/19/18 05:54 Dose: 2 mg Departure - Departure Disposition: Home, Routine, Self-Care Clinical Impression: Headache Qualifiers: Headache type: unspecified Headache chronicity pattern: acute headache Intractability: intractable Qualified Code(s): R51 - Headache Condition: Good Instructions: Acute Headache (ED) Additional Instructions: 1. Stay well-hydrated drink lots of fluids. 2. Return emergency room if worsening symptoms Referrals: Patient,NotPresent [Unknown] - As per Instructions
[2018-10-19] MEDS ORDERED: HYDROmorphONE/DILAUDID 2 MG TAB PO ONE (05:47)
[2018-10-19 07:22] VITALS: BP 113/69
== END 2018-10-19 07:21 | disposition home or self-care (01) ==
DX: R51 Headache (principal); I48.91 Unspecified atrial fibrillation; Z79.01 Long term (current) use of anticoagulants

== ENCOUNTER → 2018-12-07 | Outpatient (CLI) | payer OTHER | LOC: FIMAGING 11:01 | PROVIDERS: ATTEND Physician Assistant | DX: Z12.31 Encounter for screening mammogram for malignant neoplasm of breast (principal) ==

== ENCOUNTER 2019-02-19 15:36 | Inpatient (IN) | payer OTHER ==
[2019-02-19] MEDS ORDERED: NS 1,000 ML IV ONE (16:02)
--- NOTE | 2019-02-19 16:09 | EDPHY ---
H & P Stated Complaint: Throat problems, unable to swallow. "afraid I am dehydrated" Time Seen by Provider: 02/19/19 15:54 HPI/ROS: CHIEF COMPLAINT: Difficulty swallowing HISTORY OF PRESENT ILLNESS: The patient is an 83-year-old man who comes to the emergency department for hydration. He states that he a fell in September and had a C1 cervical fracture that was managed with a hard collar for 2 months. After he fell he had difficulty swallowing because he had swelling in the area of the fracture. He states that this improved with time but that he fell again last week. He tripped over the door step when entering his house. He hit the top of his head on the wall. He takes Eliquis for history of atrial fibrillation. He reports that since that fall last week he is again had difficulty swallowing and that when he tries to drink water or thin liquids a comes out of his nose. He is able to swallow solid food and ensure. Denies any new weakness in his arms or legs. He states that he has had mild weakness in both legs since his fall in September but that has not changed recently. He drove himself here to the ER because he is concerned that he is becoming dehydrated. He has a swallow study scheduled March 03. He reports that he has had is esophagus dilated several years ago. He does not remember if his symptoms that were similar to now. He also reports history of previous TIAs. He denies any facial drooping or trouble speaking. Severity: Moderate Modifying factors: None REVIEW OF SYSTEMS: Constitutional: denies: chills, fever, recent illness, recent injury EENTM: See HPI denies: blurred vision, double vision, nose congestion Respiratory: denies: cough, shortness of breath Cardiac: denies: chest pain, irregular heart rate, lightheadedness, palpitations Gastrointestinal/Abdominal: denies: abdominal pain, diarrhea, nausea, vomiting, blood streaked stools Genitourinary: denies: dysuria, frequency, hematuria, pain Musculoskeletal: denies: joint pain, muscle pain Skin: denies: lesions, rash, jaundice, bruising Neurological: See HPI denies: headache, numbness, paresthesia, tingling, dizziness, weakness Hematologic/Lymphatic: denies: blood clots, easy bleeding, easy bruising Immunologic/allergic: denies: HIV/AIDS, transplant 10 systems reviewed and negative except as noted EXAM: GENERAL: Thin, dehydrated, stable vital signs. HEAD: Atraumatic, normocephalic. EYES: Pupils equal round and reactive to light, extraocular movements intact, sclera anicteric, conjunctiva are normal. ENT: TMs normal, nares patent, oropharynx clear without exudates. No visible swelling. very dry mucous membranes. NECK: Normal range of motion, supple without lymphadenopathy or JVD. LUNGS: Breath sounds clear to auscultation bilaterally and equal. No wheezes rales or rhonchi. HEART: Regular rate and rhythm without murmurs, rubs or gallops. ABDOMEN: Soft, nontender, normoactive bowel sounds. No guarding, no rebound. No masses appreciated. BACK: No CVA tenderness, no spinal tenderness, step-offs or deformities EXTREMITIES: Normal range of motion, no pitting or edema. No clubbing or cyanosis. NEUROLOGICAL: NIH stroke score 0. Cranial nerves II through XII grossly intact. Normal speech, normal gait. 5/5 strength, normal movement in all extremities, normal sensation, normal reflexes, no pronator drift. Normal cerebellar exam. PSYCH: Normal mood, normal affect. SKIN: Warm, dry, mild tenting, no visible rashes or lesions. Source: Patient Exam Limitations: No limitations - Personal History Current Tetanus/Diphtheria Vaccine: Yes Current Tetanus Diphtheria and Acellular Pertussis (TDAP): Yes - Medical/Surgical History Hx Asthma: No Hx Chronic Respiratory Disease: No Hx Diabetes: No Hx Cardiac Disease: Yes Hx Renal Disease: Yes Hx Cirrhosis: No Hx Alcoholism: No Hx HIV/AIDS: No Hx Splenectomy or Spleen Trauma: No Other PMH: AFIB,ARTHRITIS,ULCER-1990, HIP FX W/ PINS, NECK FUSION, intermittent L arm/shoulder pain/ tia - Family History Significant Family History: No pertinent family hx - Social History Smoking Status: Former smoker Alcohol Use: None Constitutional: Initial Vital Signs Temperature (C) 36.4 C 02/19/19 15:39 Heart Rate 76 02/19/19 15:39 Respiratory Rate 16 02/19/19 15:39 Blood Pressure 113/67 02/19/19 15:39 O2 Sat (%) 95 02/19/19 15:39 O2 Delivery Mode Room Air Allergies/Adverse Reactions: infliximab [From Remicade] Allergy (Verified 02/19/19 19:18) Rash BENZOINE Allergy (Uncoded 02/19/19 19:18) Rash Home Medications: Medication Instructions Recorded Acetaminophen [Acetaminophen Extra 1,000 mg PO BID 02/19/19 Strength] Apixaban [Eliquis] 2.5 mg PO BID 02/19/19 Bimatoprost 0.01% [Lumigan 0.01% 1 drops EACHEYE HS 02/19/19 (*)] Cyanocobalamin [Vitamin B12 (*)] 1,000 mcg PO DAILY 02/19/19 Denosumab [Prolia] 60 mg SQ Q180D 02/19/19 Diltiazem HCl [DILTIAZEM ER] 180 mg PO HS 02/19/19 Folic Acid [Folic Acid 1 MG (*)] 1 mg PO HS 02/19/19 Mirabegron [Myrbetriq] 50 mg PO DAILY 02/19/19 Omeprazole 20 mg PO BID 02/19/19 Solifenacin Succinate [Vesicare 5 5 mg PO DAILY 02/19/19 MG (*)] Timolol 0.5% [TIMOPTIC 0.5% (*)] 1 drops EACHEYE DAILY 02/19/19 oxyCODONE IR [Oxycodone Ir (*)] 5 - 10 mg PO Q8H PRN 02/19/19 traZODone [traZODONE 100MG (*)] 100 mg PO HS PRN 02/19/19 Medical Decision Making - Diagnostics Imaging Results: Imaging Impressions Cervical Spine CT 02/19/19 16:02 Impression: 1. No interval change in unfused C1 bilateral lateral mass fractures, with persistent mild anterior subluxation. 2. No definite acute new compression fractures of the cervical spine. 3. If there is persistent pain or neurological deficit, recommend MR cervical spine and consider Neurosurgery Consult. Findings and recommendations discussed with Emergency Department physician, Calin Parra, at 1725 hours, on February 19, 2019. Final report concurs with initial preliminary interpretation. Head CT 02/19/19 16:02 Impression: 1. Moderate atrophy. 2. No acute hemorrhage, hydrocephalus, or mass effect. 3. Cerebrovascular atherosclerosis. 4. No definite acute infarct. 5. 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 6. Old unfused bilateral lateral C1 fractures again identified. 7. No acute skull fracture. Findings and recommendations discussed with Emergency Department physician, Calin Parra M.D., at 1725 hours, on February 19, 2019. Final report concurs with initial preliminary interpretation. Imaging: Discussed imaging studies w/ outbound call center representative Radiologist ED Course/Re-evaluation: I discussed the imaging results with Dr. Pearson. He will consult in the hospital tomorrow. Agrees with not replacing the patient's collar at this point. It was cleared by Dr. Francisco in the [facility] 8 weeks after the initial injury. The patient still appears very dehydrated. Will treat with more IV fluids. Will admit for continued workup with this difficulty swelling. He does not have any pronator drift. No slurred speech. No facial deficits. 6:10 p.m. Discussed the case Dr. Hu who will admit. Differential Diagnosis: Partial list of the Differential diagnosis considered include but were not limited to; CVA, cervical spine fracture, esophageal stricture, bleeding and although unlikely based on the history and physical exam, I also considered infection, dissection. - Data Points Laboratory Results: Laboratory Results 02/19/19 16:07 02/19/19 16:07 02/19/19 02/19/19 02/19/19 16:07 16:07 16:07 WBC 12.72 10^3/uL H 10^3/uL (3.80-9.50) RBC 3.71 10^6/uL L 10^6/uL (4.40-6.38) Hgb 12.1 g/dL L g/dL (13.7-17.5) Hct 37.2 % L % (40.0-51.0) MCV 100.3 fL H fL (81.5-99.8) MCH 32.6 pg pg (27.9-34.1) MCHC 32.5 g/dL g/dL (32.4-36.7) RDW 13.8 % % (11.5-15.2) Plt Count 348 10^3/uL 10^3/uL (150-400) MPV 9.4 fL fL (8.7-11.7) Neut % (Auto) 79.2 % H % (39.3-74.2) Lymph % (Auto) 12.2 % L % (15.0-45.0) Edgar % (Auto) 7.4 % % (4.5-13.0) Eos % (Auto) 0.5 % L % (0.6-7.6) Baso % (Auto) 0.2 % L % (0.3-1.7) Nucleat RBC Rel Count 0.0 % % (0.0-0.2) Absolute Neuts (auto) 10.09 10^3/uL H 10^3/uL (1.70-6.50) Absolute Lymphs (auto) 1.55 10^3/uL 10^3/uL (1.00-3.00) Absolute Monos (auto) 0.94 10^3/uL H 10^3/uL (0.30-0.80) Absolute Eos (auto) 0.06 10^3/uL 10^3/uL (0.03-0.40) Absolute Basos (auto) 0.02 10^3/uL 10^3/uL (0.02-0.10) Absolute Nucleated RBC 0.00 10^3/uL 10^3/uL (0-0.01) Immature Gran % 0.5 % % (0.0-1.1) Immature Gran # 0.06 10^3/uL 10^3/uL (0.00-0.10) PT 16.8 SEC H SEC (12.0-15.0) INR 1.43 H (0.83-1.16) APTT 36.5 SEC SEC (23.0-38.0) Sodium 141 mEq/L mEq/L (135-145) Potassium 4.8 mEq/L mEq/L (3.5-5.2) Chloride 106 mEq/L mEq/L (97-110) Carbon Dioxide 23 mEq/l mEq/l (22-31) Anion Gap 12 mEq/L mEq/L (6-14) BUN 55 mg/dL H mg/dL (7-23) Creatinine 1.9 mg/dL H mg/dL (0.7-1.3) Estimated GFR 34 Glucose 93 mg/dL mg/dL (70-100) Calcium 8.6 mg/dL mg/dL (8.5-10.4) Medications Given: Discontinued Medications Sodium Chloride (Ns) 1,000 mls @ 0 mls/hr IV ONCE ONE; Wide Open PRN Reason: Protocol Stop: 02/19/19 16:03 Last Admin: 02/19/19 16:09 Dose: 1,000 mls Departure - Departure Disposition: [facility] Acute Clinical Impression: Dehydration, Difficulty swallowing liquids Condition: Fair
[2019-02-19 16:19] LABS: PLATELET COUNT 348 10^3/uL (150-400)
[2019-02-19 16:30] LABS: INR 1.43 (0.83-1.16); PROTIME(PATIENT) 16.8 SEC (12.0-15.0)
[2019-02-19] MEDS ORDERED: ONDANSETRON 4 MG/2 ML VIAL IVP PRN (19:10)
[2019-02-19] MEDS ORDERED: ONDANSETRON DISINTEGRATING 4 MG TAB PO PRN (19:10)
[2019-02-19] MEDS ORDERED: oxyCODONE IR 5 MG TAB PO PRN (19:17)
[2019-02-19] MEDS ORDERED: traZODone 100 MG TAB PO PRN (19:17)
--- NOTE | 2019-02-19 19:29 | PDGENHP ---
<Kimber Lora - Last Filed: 02/19/19 19:58> History and Physical - Chief Complaint Dysphagia - History of Present Illness This is an 83 y/o male w/ hx of recent C1 fracture (September 2018) placed in hard collar for 2 months s/p mechanical fall presenting today after sustaining another mechanical fall, hitting the top of his head on a wall a week ago. He is presenting to ED because he has difficulty swallowing especially water/thin liquids which comes out his nose when he attempts to. He experienced similar symptoms after his fall in September and reports it was d/t esophageal swelling that inhibited him from swallowing properly. With time, his swallowing eventually improved. During this episode, he apparently was stepping into his house and did not step high enough so he tripped. He denies urinary incontinence, constipation, diarrhea, new onset of bilateral lower extremity weakness, CP, palpitations, nausea, fevers, headaches. Endorses feeling dehydrated for the last week. He is able to eat solid foods and drinks Ensure w/no issues. He has an appointment scheduled w/ENT on March 05 for endoscopy. A few years ago, he had a similar procedure performed but cannot provide much more information than that. He is being admitted for treatment and monitoring. History Information - Allergies/Home Medication List Allergies/Adverse Reactions: infliximab [From Remicade] Allergy (Verified 02/19/19 19:18) Rash BENZOINE Allergy (Uncoded 02/19/19 19:18) Rash Home Medications: Acetaminophen [Acetaminophen Extra Strength] 1,000 mg PO BID 02/19/19 [Last Taken 02/19/19 09:00] Apixaban [Eliquis] 2.5 mg PO BID 02/19/19 [Last Taken 02/19/19 09:00] Bimatoprost 0.01% [Lumigan 0.01% (*)] 1 drops EACHEYE HS 02/19/19 [Last Taken 21:00] Cyanocobalamin [Vitamin B12 (*)] 1,000 mcg PO DAILY 02/19/19 [Last Taken 09:00] Denosumab [Prolia] 60 mg SQ Q180D 02/19/19 [Last Taken 01/20/19] Diltiazem HCl [DILTIAZEM ER] 180 mg PO DAILY 02/19/19 [Last Taken 02/19/19 09:00 ] Folic Acid [Folic Acid 1 MG (*)] 1 mg PO HS 02/19/19 [Last Taken 02/18/19 21:00] Mirabegron [Myrbetriq] 50 mg PO DAILY 02/19/19 [Last Taken 02/19/19 09:00] Omeprazole 20 mg PO BID 02/19/19 [Last Taken 02/19/19 09:00] Solifenacin Succinate [Vesicare 5 MG (*)] 5 mg PO DAILY 02/19/19 [Last Taken 01/08 09:00] Timolol 0.5% [TIMOPTIC 0.5% (*)] 1 drops EACHEYE DAILY 02/19/19 [Last Taken 01/08 09:00] oxyCODONE IR [Oxycodone Ir (*)] 5 - 10 mg PO Q8H PRN 02/19/19 [Last Taken Unknown] traZODone [traZODONE 100MG (*)] 100 mg PO HS PRN 02/19/19 [Last Taken Unknown] I have personally reviewed and updated: family history, medical history, social history, surgical history - Past Medical History atrial fibrillation, arthritis, coronary artery disease, TIA (x 3 (Last one was in October 2017)) Additional medical history: Chronic renal insufficiency. Anklylosing spondylitis. Dilated ascending aorta. VADIM. Neck fusion. Hip fx w/pins - Surgical History Reports: neurological surgery - Family History Positive for: stroke (Mother) - Social History Smoking Status: Former smoker Alcohol Use: None Drug Use: None Additional social history: Lives in [place] independently. Has 6 children, his oldest named Cheikh who is also MPOA, was at bedside. Review of Systems Review of Systems: ROS: 10pt was reviewed & negative except for what was stated in HPI & below Physical Exam Physical Exam: Lab data and imaging were reviewed. WBC: 12.72 H/H: 12.1/37.2 INR: 1.43 Na: 141 BUN/Cr: 55/1.[address]: No acute hemorrhage, hydrocephalus or mass affect, no definite acute infarct or skull fracture Cervical spine CT: no interval changes in unfused C1 bilateral lateral mass fractures w/persistent mild anterior subluxation, no definite acute new compression fractures of the cervical spine Temp Pulse Resp BP Pulse Ox 36.4 C 62 16 120/65 94 02/19/19 18:31 02/19/19 18:31 02/19/19 18:31 02/19/19 18:31 02/19/19 18:31 Constitutional: no apparent distress, not in pain, other (Thin appearing elderly male, pleasant and cooperative.) Eyes: PERRL, anicteric sclera, EOMI Ears, Nose, Mouth, Throat: hearing normal, ears appear normal, no oral mucosal ulcers, dry mucous membranes Cardiovascular: regular rate and rhythym, no murmur, rub, or gallop, No edema Peripheral Pulses: 2+: dorsalis-pedis (R), dorsalis-pedis (L) Respiratory: no respiratory distress, no rales or rhonchi, clear to auscultation Gastrointestinal: normoactive bowel sounds, soft, non-tender abdomen, no palpable masses Genitourinary: no bladder fullness, no bladder tenderness Skin: warm, normal color, no rashes or abrasions, no fluctuance, no induration, No mottled Musculoskeletal: full muscle strength, no muscle tenderness, normal joint ROM, no joint effusions Neurologic: AAOx3, sensation intact bilaterally, weakness (BLE weakness from previous mechanical fall in September. No new onset of weakness), CN II-XII Intact Psychiatric: interacting appropriately, not anxious, not encephalopathic, thought process linear Lymph, Heme, Immunologic: no cervical LAD, no supraclavicular LAD Lab Data & Imaging Review 02/19/19 16:07 02/19/19 16:07 WBC 12.72 10^3/uL (3.80-9.50) H 02/19/19 16:07 RBC 3.71 10^6/uL (4.40-6.38) L 02/19/19 16:07 Hgb 12.1 g/dL (13.7-17.5) L 02/19/19 16:07 Hct 37.2 % (40.0-51.0) L 02/19/19 16:07 MCV 100.3 fL (81.5-99.8) H 02/19/19 16:07 MCH 32.6 pg (27.9-34.1) 02/19/19 16:07 MCHC 32.5 g/dL (32.4-36.7) 02/19/19 16:07 RDW 13.8 % (11.5-15.2) 02/19/19 16:07 Plt Count 348 10^3/uL (150-400) 02/19/19 16:07 MPV 9.4 fL (8.7-11.7) 02/19/19 16:07 Neut % (Auto) 79.2 % (39.3-74.2) H 02/19/19 16:07 Lymph % (Auto) 12.2 % (15.0-45.0) L 02/19/19 16:07 Hodgeman % (Auto) 7.4 % (4.5-13.0) 02/19/19 16:07 Eos % (Auto) 0.5 % (0.6-7.6) L 02/19/19 16:07 Baso % (Auto) 0.2 % (0.3-1.7) L 02/19/19 16:07 Nucleat RBC Rel Count 0.0 % (0.0-0.2) 02/19/19 16:07 Absolute Neuts (auto) 10.09 10^3/uL (1.70-6.50) H 02/19/19 16:07 Absolute Lymphs (auto) 1.55 10^3/uL (1.00-3.00) 02/19/19 16:07 Absolute Monos (auto) 0.94 10^3/uL (0.30-0.80) H 02/19/19 16:07 Absolute Eos (auto) 0.06 10^3/uL (0.03-0.40) 02/19/19 16:07 Absolute Basos (auto) 0.02 10^3/uL (0.02-0.10) 02/19/19 16:07 Absolute Nucleated RBC 0.00 10^3/uL (0-0.01) 02/19/19 16:07 Immature Gran % 0.5 % (0.0-1.1) 02/19/19 16:07 Immature Gran # 0.06 10^3/uL (0.00-0.10) 02/19/19 16:07 PT 16.8 SEC (12.0-15.0) H 02/19/19 16:07 INR 1.43 (0.83-1.16) H 02/19/19 16:07 APTT 36.5 SEC (23.0-38.0) 02/19/19 16:07 Sodium 141 mEq/L (135-145) 02/19/19 16:07 Potassium 4.8 mEq/L (3.5-5.2) 02/19/19 16:07 Chloride 106 mEq/L (97-110) 02/19/19 16:07 Carbon Dioxide 23 mEq/l (22-31) 02/19/19 16:07 Anion Gap 12 mEq/L (6-14) 02/19/19 16:07 BUN 55 mg/dL (7-23) H 02/19/19 16:07 Creatinine 1.9 mg/dL (0.7-1.3) H 02/19/19 16:07 Estimated GFR 34 02/19/19 16:07 Glucose 93 mg/dL (70-100) 02/19/19 16:07 Calcium 8.6 mg/dL (8.5-10.4) 02/19/19 16:07 Assessment & Plan Plan: 83 y/o male s/p seven days mechanical fall, hitting his head and subsequently difficulty swallowing, especially water or thin liquids. Dysphagia happened previously in September after sustaining a C1 fx and gradually improved w/time. He feels dehydrated. He is able to tolerate solid foods and Ensure. He was scheduled for an endoscopy on March 05 to evaluate his dysphagia. He is hemodynmically stable w/ vitals of BP 120/65, HR 62, Resp 16, 36.4c, 94%RA Head CT and cervical spine unremarkable. Plan: -[employer] ASSIST[employer] PRINCIPAL to evaluate and treat; would appreciate recommendation for further testing - possibly EGD testing -One time RN swallow test; use Ensure -Received 1L NS; cont IVF x 2 bags -PT/OT to evaluate and treat for weakness -Neurosurgery consulted and will evaluate in AM. Dr. Maria to consult. -CXR pending to r/o PNA, effusion, infiltrate. Concern for aspiration w/ dysphagia. Diet: Cardiac, use Ensure once passed RN swallow test Code: DNR VTE ppx: Eliquis Dispo: Admit to obs <Ahsan Varma - Last Filed: 02/20/19 00:10> History and Physical - History of Present Illness Review of Systems Review of Systems: Physical Exam Physical Exam: Temp Pulse Resp BP Pulse Ox 36.4 C 57 L 18 122/62 H 93 02/19/19 23:13 02/19/19 23:13 02/19/19 23:13 02/19/19 23:13 02/19/19 23:13 O2 (L/minute) 1 Lab Data & Imaging Review 02/19/19 16:07 02/19/19 16:07 WBC 12.72 10^3/uL (3.80-9.50) H 02/19/19 16:07 RBC 3.71 10^6/uL (4.40-6.38) L 02/19/19 16:07 Hgb 12.1 g/dL (13.7-17.5) L 02/19/19 16:07 Hct 37.2 % (40.0-51.0) L 02/19/19 16:07 MCV 100.3 fL (81.5-99.8) H 02/19/19 16:07 MCH 32.6 pg (27.9-34.1) 02/19/19 16:07 MCHC 32.5 g/dL (32.4-36.7) 02/19/19 16:07 RDW 13.8 % (11.5-15.2) 02/19/19 16:07 Plt Count 348 10^3/uL (150-400) 02/19/19 16:07 MPV 9.4 fL (8.7-11.7) 02/19/19 16:07 Neut % (Auto) 79.2 % (39.3-74.2) H 02/19/19 16:07 Lymph % (Auto) 12.2 % (15.0-45.0) L 02/19/19 16:07 Hodgeman % (Auto) 7.4 % (4.5-13.0) 02/19/19 16:07 Eos % (Auto) 0.5 % (0.6-7.6) L 02/19/19 16:07 Baso % (Auto) 0.2 % (0.3-1.7) L 02/19/19 16:07 Nucleat RBC Rel Count 0.0 % (0.0-0.2) 02/19/19 16:07 Absolute Neuts (auto) 10.09 10^3/uL (1.70-6.50) H 02/19/19 16:07 Absolute Lymphs (auto) 1.55 10^3/uL (1.00-3.00) 02/19/19 16:07 Absolute Monos (auto) 0.94 10^3/uL (0.30-0.80) H 02/19/19 16:07 Absolute Eos (auto) 0.06 10^3/uL (0.03-0.40) 02/19/19 16:07 Absolute Basos (auto) 0.02 10^3/uL (0.02-0.10) 02/19/19 16:07 Absolute Nucleated RBC 0.00 10^3/uL (0-0.01) 02/19/19 16:07 Immature Gran % 0.5 % (0.0-1.1) 02/19/19 16:07 Immature Gran # 0.06 10^3/uL (0.00-0.10) 02/19/19 16:07 PT 16.8 SEC (12.0-15.0) H 02/19/19 16:07 INR 1.43 (0.83-1.16) H 02/19/19 16:07 APTT 36.5 SEC (23.0-38.0) 02/19/19 16:07 Sodium 141 mEq/L (135-145) 02/19/19 16:07 Potassium 4.8 mEq/L (3.5-5.2) 02/19/19 16:07 Chloride 106 mEq/L (97-110) 02/19/19 16:07 Carbon Dioxide 23 mEq/l (22-31) 02/19/19 16:07 Anion Gap 12 mEq/L (6-14) 02/19/19 16:07 BUN 55 mg/dL (7-23) H 02/19/19 16:07 Creatinine 1.9 mg/dL (0.7-1.3) H 02/19/19 16:07 Estimated GFR 34 02/19/19 16:07 Glucose 93 mg/dL (70-100) 02/19/19 16:07 Calcium 8.6 mg/dL (8.5-10.4) 02/19/19 16:07 Assessment & Plan Assessment: Dehydration (Acute) Difficulty swallowing liquids (Acute) Plan: I have seen the patient, reviewed the chart and labs and agree with the plan as outlined by FLOYD Lora.
[2019-02-19] MEDS ORDERED: NON-FORMULARY NEW DRUG (Denosumab [Prolia] 60 MG) SQ SCH (19:30)
[2019-02-19] MEDS ORDERED: DILTIAZEM HCL 180 MG PO SCH (21:00)
[2019-02-19] MEDS: APIXABAN 5 MG TAB PO SCH (23:10)
[2019-02-20] MEDS: BIMATOPROST 0.01% 2.5 ML OPHT.BTL EACHEYE SCH ×2 (00:53→21:57)
[2019-02-20] MEDS: FOLIC ACID 1 MG TAB PO SCH ×2 (00:53→21:56)
[2019-02-20] MEDS: NS 1,000 ML IV SCH ×2 (04:39→22:11)
[2019-02-20 04:53] LABS: PLATELET COUNT 284 10^3/uL (150-400)
--- NOTE | 2019-02-20 10:46 | GCON ---
[f rep st] CONSULTATION NEUROSURGICAL CONSULTATION DATE OF CONSULTATION: 02/20/2019 CHIEF COMPLAINT: Fall and difficulty swallowing. The patient is an 83-year-old male known to Dr. Trivedi's practice with a known unhealed C1 fracture. The patient was maintained in a hard cervical collar previously for this known injury that he suffered after a fall. 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 Recently, the patient has been having difficulty swallowing and poor nutritional intake. He recently fell and has been having worsening p.o. intake. He has been admitted to the hospital for medical management of his dysphagia. Currently, the patient denies any new neck pain, or any numbness, tingling, or weakness in his upper or lower extremities. He denies any bowel or bladder incontinence. He has the same chronic mild posterior neck pain as he always has had from his known ankylosing spondylitis. Neurologically, he has no complaints. ALLERGIES: Remicade. HOME MEDICATIONS: Tylenol. SOCIAL HISTORY: The patient is a former smoker. He does not drink alcohol or use drugs. He lives in [place] independently. REVIEW OF SYSTEMS: Negative other than mentioned in the HPI. PHYSICAL EXAM: GENERAL: Pleasant healthy-appearing 83-year-old male in no apparent distress. HEENT: Head, eyes, ears, nose, throat within normal limits. EXTREMITIES: Within normal limits. He is nontender to palpation of the cervical spine and skull base. NEUROLOGIC: Exam patient is awake, alert and oriented x4. Cranial nerves 2-12 are intact to gross examination. Speech is fluent. Tongue is midline. Spinal accessory muscles are intact. He has equal and symmetric strength of bilateral upper and lower extremities in all muscle groups. Reflexes are hyporeflexic at bilateral biceps, brachioradialis, and patellar tendons with no Sorenson's. LABORATORY STUDIES: I did review lab results. White blood cell count 11.39, hemoglobin 10.1, hematocrit 31.4, platelets 284. His INR is 1.43. Sodium is 140, potassium is 4.6, chloride 111, carbon dioxide 24, BUN 4.7, creatinine was 1.7 down from 1.9 yesterday. IMAGING: CT scan of the head without contrast on 02/19/2019 was compared to a prior CT from September 2018 and demonstrates stable moderate atrophy with no acute hemorrhage, hydrocephalus or mass effect. There is no acute infarct. Old infarcts are noted in the right frontal lobe and left occipital lobe. No acute skull fracture. CT scan of the cervical spine on 02/19/2019 is compared to a CT from September 2018 and demonstrates no interval change of the unfused C1 bilateral lateral mass fractures with persistent mild anterior subluxation with no interval change. There are no new compression fractures noted in the cervical spine. IMPRESSION: This is an 83-year-old male with known unhealed C1 bilateral, lateral mass fractures, who recently fell and has been having poor p.o. intake. The patient has had no new neurologic changes or neck pain since his recent fall and remains neurologically stable. His imaging studies are stable when compared to his prior studies. PLAN: All above issues were discussed the patient in detail and with Dr. Trivedi today. At this time, there is no neurosurgical intervention recommended as the patient is neurologically intact with no acute worsening pain or neurologic issues. He does not need to be in a cervical collar. We recommend continued medical management of this patient for his other issues. Neurosurgery will sign off. The patient may follow up with us as an outpatient in our clinic if he has any further issues. NEUROSURGERY ATTENDING NOTE I reviewed his images and spoke with the patient. His cervical spine feels great with no new complaints. I do not think that his swallowing issues are related, and he has been scheduled for an esophageal dilation in about 1-2 weeks. He is in agreement with this plan. He will PRN follow-up with us. Thank you for this consult. /[id number]/MODL MTDD
--- NOTE | 2019-02-20 10:46 | HOSPPROG ---
Hospitalist Progress Note Assessment/Plan: Mr Thorne brought himself to the ER because he hasn't been able to eat or drink much since Monday. First encounter, chart reviewed. *Dysphagia -reviewed his care w ST, recommending a video study, this has been ordered *r middle lobe opacity -concern for aspiration -no fevers or cough, procalcitonin is low -cont monitoring for any s/sx for possible infection *C1 fx hx -hard collar in place for 2 months from injury -appreciate neurosurgery seeing him, no collar is indicated *mechanical fall -per the patient he has been falling more often, says he isn't picking up his feet w ambulation -will ask PT and OT to further evaluate -he lives alone and is driving *severe malnutrition w a BMI of 18 -patient has muscle wasting, collar bones protrude out -will see how he does w the video *narrowed esophagus -has had esophageal dilation in the past -has an appt w ENT on March 05 for endoscopy to get this done -if the video is stable, will ask GI to see during this stay *renal insufficiency -creat is close to his baseline of 1.7 *Plan; PT and OT to see, appreciate ST, may need GI consult Subjective: Teo is hungry and wants to eat. Objective: Vital Signs Temp Pulse Resp BP Pulse Ox 36.2 C 66 16 107/58 L 95 02/20/19 07:31 02/20/19 07:31 02/20/19 07:31 02/20/19 07:31 02/20/19 07:31 Laboratory Results 02/20/19 04:25 02/20/19 04:25 02/19/19 02/20/19 02/21/19 05:59 05:59 05:59 Intake Total 1800 Output Total 250 Balance 1800 -250 PT 16.8 SEC (12.0-15.0) H 02/19/19 16:07 INR 1.43 (0.83-1.16) H 02/19/19 16:07 - Physical Exam Constitutional: chronically ill appearing, cachectic Eyes: PERRL Ears, Nose, Mouth, Throat: hearing normal Cardiovascular: regular rate and rhythym Respiratory: no respiratory distress, reduced air movement Skin: warm Musculoskeletal: generalized weakness Neurologic: AAOx3 Psychiatric: interacting appropriately ICD10 Worksheet Patient Problems: Problems Problem Status Onset Dehydration Acute Difficulty swallowing liquids Acute Atrial fibrillation Acute Brain mass Acute C1 cervical fracture Acute Forehead laceration Acute Head injury due to trauma Acute
[2019-02-20] MEDS: APIXABAN 5 MG TAB PO SCH (14:14)
[2019-02-20] MEDS: SOLIFENACIN SUCCINATE 5 MG TAB PO SCH (14:16)
[2019-02-20] MEDS: CYANO/VITAMIN B12 1000 MCG TAB PO SCH (14:16)
[2019-02-20] MEDS: Mirabegron [Myrbetriq] 50 MG PO SCH (14:17)
[2019-02-20] MEDS: DILTIAZEM HCL 180 MG PO SCH (14:18)
[2019-02-20] MEDS: TIMOLOL 0.5% 15 ML OPHT.BTL EACHEYE SCH (15:02)
[2019-02-20] MEDS: ACETAMINOPHEN 325 MG TAB PO PRN (22:03)
[2019-02-21] MEDS: APIXABAN 5 MG TAB PO SCH (00:49)
--- NOTE | 2019-02-21 05:25 | GCON ---
[f rep st] CONSULTATION REFERRING PHYSICIAN: Tosin Fisher NP CHIEF COMPLAINT: Dysphagia HISTORY OF PRESENT ILLNESS: I have been asked to see this very pleasant 83-year-old gentleman in [facility] by Tosin Fisher for evaluation of dysphagia. This 83-year-old gentleman has a history o f recent C1 fracture in September 2018. He had been placed in a hard collar for 2 months. He had a f all at home. He hit the top of his head on a wall about a week ago. Had a previous fall about a wee k ago. He presented to the emergency department with increasing problems with swallowing. He has dill d a history of esophageal stricture in the past. He has undergone upper endoscopy. He was seen by Arlen flannery Pathology during this admission and was found not to have any significant problems with aspirat ion. He was recently seen in the GI office on 01/23/2019. He had been scheduled for an upper endosc opy as an outpatient. He complains of chronic dysphagia with dry mouth and some nausea as well as ea rly satiety and some weight loss. Does report some altered taste. He has a history of atrial fibril lation, esophageal reflux. I am asked to see patient for further evaluation. PAST MEDICAL HISTORY: Marked for atrial fibrillation, arthritis, coronary artery disease, TIA, chron ic renal insufficiency including spondylitis, dilated ascending aorta, VADIM, neck fusion, hip fracture with pins. FAMILY HISTORY: Noncontributory as it pertains to chief complaint. SOCIAL HISTORY: Former smoker. No alcohol. Lives in [place] independently. Has 6 children. He i s a . ALLERGIES: Remicade and benzoin. HOME MEDICATIONS: Acetaminophen, Eliquis, B12, diltiazem, folic acid, Myrbetriq, omeprazole, VESIcar e, Timoptic, oxycodone, and trazodone. REVIEW OF SYSTEMS: Negative for 10 systems other than mentioned in HPI. PHYSICAL EXAM: VITAL SIGNS: 127/73, pulse of 68, respiratory rate 18, 96% sat on room air, 36.4. G ENERAL: Elderly gentleman, no acute distress. HEENT: Normocephalic, atraumatic. EOMI. NECK: Some what stiff. No cervical adenopathy. No thyromegaly. Mucus membranes somewhat dry. LUNGS: Clear. CARDIAC: Normal S1, S2 without murmur. ABDOMEN: Benign, soft. No hepatosplenomegaly. EXTREMITIE S: With trace edema. No cyanosis, clubbing. SKIN: Warm and dry. NEURO: Nonfocal. PSYCH: Alert and oriented x3. LABORATORY DATA: Hemoglobin of 10.1, hematocrit 31.4, MCV of 101.3. Serum chemistries: Serum sodiu m 140, potassium 4.6, chloride 111, CO2 24, BUN 47, creatinine 1.7. PT of 16.8 with an INR of 1.43. IMPRESSION: 83-year-old gentleman with multiple medical problems, with ankylosing spondylitis, with history of dysphagia, and previous history of esophageal stricture, and dilation per his report. The patient had been scheduled for an upper endoscopy as an outpatient. We will plan on upper endoscopy with potential dilation; however, patient is on Eliquis. Will need to be held for at least 2 days p rior to procedure. This can be done as an inpatient or an outpatient. We will follow with you. Thank you very much for allowing me to participate in the care of this patient. /[id number]/MODL
--- NOTE | 2019-02-21 10:17 | HOSPPROG ---
Hospitalist Progress Note Assessment/Plan: Mr Thorne brought himself to the ER because he hasn't been able to eat or drink much since Monday. *Dysphagia -reviewed his care w ST -ok to put on regular diet *r middle lobe opacity -concern for aspiration -no fevers or cough, procalcitonin is low -cont monitoring for any s/sx for possible infection *C1 fx hx -hard collar in place for 2 months from injury -appreciate neurosurgery seeing him, no collar is indicated *mechanical fall -per the patient he has been falling more often, says he isn't picking up his feet w ambulation - PT and OT seeing -he lives alone and is driving *severe malnutrition w a BMI of 18 -patient has muscle wasting, collar bones protrude out -will see how he does w the video *narrowed esophagus -has had esophageal dilation in the past -to get dilation this Monday (on Eliqu-this is on hold) -NPO after midnight on Monday *hx of afib -on Eliquis for this *renal insufficiency -creat is close to his baseline of 1.7 *Plan: HOLD Eliquis Subjective: Teo is feeling overall better since being in the hospital. Objective: Vital Signs Temp Pulse Resp BP Pulse Ox 36.6 C 76 16 129/75 H 92 02/21/19 07:33 02/21/19 07:33 02/21/19 07:33 02/21/19 07:33 02/21/19 07:33 02/20/19 02/21/19 02/22/19 05:59 05:59 05:59 Intake Total 1132 Output Total 1250 Balance -118 PT 16.8 SEC (12.0-15.0) H 02/19/19 16:07 INR 1.43 (0.83-1.16) H 02/19/19 16:07 - Physical Exam Constitutional: no apparent distress, chronically ill appearing, cachectic Eyes: PERRL Ears, Nose, Mouth, Throat: hearing normal Cardiovascular: irregularly irregular Respiratory: no respiratory distress Gastrointestinal: normoactive bowel sounds Skin: warm Musculoskeletal: generalized weakness Neurologic: AAOx3 Psychiatric: interacting appropriately ICD10 Worksheet Patient Problems: Problems Problem Status Onset Dehydration Acute Difficulty swallowing liquids Acute Atrial fibrillation Acute Brain mass Acute C1 cervical fracture Acute Forehead laceration Acute Head injury due to trauma Acute
--- NOTE | 2019-02-21 10:24 | PDMN ---
Medical Necessity Medical necessity: Change to IP, as of 02/20/19, per [employer]ATOR; los >2 mn for ongoing management of dysphagia w/severe malnutrition & recent falls; requiring further workup/monitoring, GI consult & therapies; comorbid advanced age, recent C1 fx, esophageal stricture w/dilation, renal insufficiency, CAD, TIA, AFIB on AC
[2019-02-21] MEDS ORDERED: PANTOPRAZOLE SODIUM 40 MG TAB PO SCH (10:30)
[2019-02-21] MEDS: Mirabegron [Myrbetriq] 50 MG PO SCH (10:31)
[2019-02-21] MEDS: SOLIFENACIN SUCCINATE 5 MG TAB PO SCH (10:35)
[2019-02-21] MEDS: CYANO/VITAMIN B12 1000 MCG TAB PO SCH (10:35)
[2019-02-21] MEDS: DILTIAZEM CD 180 MG CAP PO SCH (10:54)
[2019-02-21] MEDS: TIMOLOL 0.5% 15 ML OPHT.BTL EACHEYE SCH (10:54)
[2019-02-21] MEDS: DILTIAZEM HCL 180 MG PO SCH (11:46)
--- NOTE | 2019-02-21 11:58 | SOAPPROG ---
SOAP Progress Note Assessment/Plan: Assessment: Dysphagia. Cannot proceed with EGD today due to anticoagulation, Eliquis Plan: 1. Hold anticoagulation (Eliquis) per Hospitalist (Taz) 2. EGD with dilation can be done on Monday02/21/19 11:56 Subjective: CC: Dysphagia Patient admitted with progressive dysphagia. He was unable to eat. He was scheduled for outpatient EGD in mid February Objective: Vital Signs Temp Pulse Resp BP Pulse Ox 36.6 C 70 16 107/55 L 92 02/21/19 07:33 02/21/19 10:54 02/21/19 07:33 02/21/19 10:54 02/21/19 07:33 02/20/19 02/21/19 02/22/19 05:59 05:59 05:59 Intake Total 1132 Output Total 1250 Balance -118 PT 16.8 SEC (12.0-15.0) H 02/19/19 16:07 INR 1.43 (0.83-1.16) H 02/19/19 16:07 Generic Name Dose Route Start Last Admin Trade Name Freq PRN Reason Stop Dose Admin Acetaminophen 650 mg 02/19/19 19:10 02/20/19 22:03 Tylenol PO 08/18/19 19:09 650 mg Q4HRS PRN Administration Pain, Mild/Fever, Can Take PO Apixaban 2.5 mg 02/19/19 21:00 02/21/19 00:49 Eliquis PO 08/18/19 20:59 Not Given BID SHANDA Bimatoprost 1 drops 02/19/19 21:00 02/20/19 21:57 Lumigan 0.01% EACHEYE 08/18/19 20:59 Not Given HS SHANDA Diltiazem HCl 180 mg 02/21/19 10:30 02/21/19 10:54 Cardizem Er Q24hr PO 08/20/19 10:29 180 mg DAILY SHANDA Administration Folic Acid 1 mg 02/19/19 21:00 02/20/19 21:56 Folic Acid PO 08/18/19 20:59 1 mg HS SHANDA Administration Miscellaneous Medication 50 mg 02/20/19 09:00 02/21/19 10:31 Mirabegron [Myrbetriq] PO 08/19/19 08:59 Not Given DAILY SHANDA Ondansetron HCl 4 mg 02/19/19 19:10 Zofran IVP 08/18/19 19:09 Q4HRS PRN Nausea/Vomiting, Can't Take PO Ondansetron HCl 4 mg 02/19/19 19:10 Zofran Odt PO 08/18/19 19:09 Q4HRS PRN Nausea/Vomiting, Use 1st Oxycodone HCl 5 - 10 mg 02/19/19 19:17 Oxycodone Ir PO 03/01/19 19:16 Q8H PRN Pain, Severe Pantoprazole Sodium 40 mg 02/21/19 10:30 02/21/19 10:56 Protonix PO 08/20/19 10:29 40 mg BID SHANDA Administration Solifenacin 5 mg 02/20/19 09:00 02/21/19 10:35 Vesicare PO 08/19/19 08:59 5 mg DAILY SHANDA Administration Timolol Maleate 1 drops 02/20/19 09:00 02/21/19 10:54 Timoptic 0.5% EACHEYE 08/19/19 08:59 Not Given DAILY SHANDA Trazodone HCl 100 mg 02/19/19 19:17 Trazodone PO 08/18/19 19:16 HS PRN Sleep/Insomnia Vitamin B Complex 1,000 mcg 02/20/19 09:00 02/21/19 10:35 Vitamin B12 PO 08/19/19 08:59 1,000 mcg DAILY SHANDA Administration Discontinued Medications Generic Name Dose Route Start Last Admin Trade Name Freq PRN Reason Stop Dose Admin Sodium Chloride 1,000 mls @ 0 mls/hr 02/19/19 16:02 02/19/19 16:09 Ns IV 02/19/19 16:03 1,000 mls ONCE ONE Administration Protocol Wide Open Sodium Chloride 1,000 mls @ 100 mls/hr 02/19/19 19:15 02/20/19 22:11 Ns IV 02/21/19 05:14 1,000 mls CONT SHANDA Administration Miscellaneous Medication 60 mg 02/19/19 19:30 Denosumab [Prolia] SQ 08/18/19 19:29 Q180D SHANDA Miscellaneous Medication 180 mg 02/19/19 21:00 Diltiazem Hcl [Diltiazem Er] PO 08/18/19 20:59 HS SHANDA Miscellaneous Medication 20 mg 02/19/19 21:00 02/21/19 11:46 Omeprazole [Omeprazole] PO 08/18/19 20:59 Not Given BID [facility] Miscellaneous Medication 180 mg 02/20/19 09:00 02/21/19 11:46 Diltiazem Hcl [Diltiazem Er] PO 08/18/19 20:59 Not Given DAILY [facility] Physical Exam - Physical Exam General Appearance: alert, no apparent distress Respiratory: lungs clear, normal breath sounds Cardiac/Chest: regular rate, rhythm Abdomen: normal bowel sounds, non-tender, soft Skin: normal color, warm/dry Neuro/Psych: alert, normal mood/affect, oriented x 3 ICD10 Worksheet Patient Problems: Problems Problem Status Onset Dehydration Acute Difficulty swallowing liquids Acute Atrial fibrillation Acute Brain mass Acute C1 cervical fracture Acute Forehead laceration Acute Head injury due to trauma Acute
--- NOTE | 2019-02-21 16:53 | ASMTCMCOM ---
CM Note CM Note Notes: Met with pt, he was recently here in September 2018 for a fall, fracturing his C1. He is admitted to hospital for difficulty swallowing. He lives alone but has 6 children, Cheikh is his MDPOA. PT recommends homecare and he is agreeable, would like referral sent to [facility]. Plan is for him to have an EGD on Monday, dc date uncertain. DC Plan: Homecare/ [facility] Date Signed: 02/21/2019 04:53 PM Electronically Signed By:Tali Moe RN
[2019-02-21] MEDS: FOLIC ACID 1 MG TAB PO SCH (20:28)
[2019-02-21] MEDS: ACETAMINOPHEN 325 MG TAB PO PRN (20:28)
[2019-02-21] MEDS: BIMATOPROST 0.01% 2.5 ML OPHT.BTL EACHEYE SCH (20:33)
[2019-02-22] MEDS: Mirabegron [Myrbetriq] 50 MG PO SCH (08:24)
[2019-02-22] MEDS: SOLIFENACIN SUCCINATE 5 MG TAB PO SCH (08:25)
[2019-02-22] MEDS: CYANO/VITAMIN B12 1000 MCG TAB PO SCH (08:26)
[2019-02-22] MEDS: DILTIAZEM CD 180 MG CAP PO SCH (08:30)
[2019-02-22] MEDS: TIMOLOL 0.5% 15 ML OPHT.BTL EACHEYE SCH (08:32)
--- NOTE | 2019-02-22 10:13 | HOSPPROG ---
Hospitalist Progress Note Assessment/Plan: Mr Thorne brought himself to the ER because he hasn't been able to eat or drink much since Monday. *Dysphagia -reviewed his care w ST -ok to put on regular diet *r middle lobe opacity -concern for aspiration -no fevers or cough, procalcitonin is low -cont monitoring for any s/sx for possible infection *diarrhea -had multiple episodes last night -will hydrate, if cont will consider getting stool studies *C1 fx hx -hard collar in place for 2 months from injury -appreciate neurosurgery seeing him, no collar is indicated *mechanical fall -per the patient he has been falling more often, says he isn't picking up his feet w ambulation - PT and OT seeing -he lives alone and is driving *severe malnutrition w a BMI of 18 -patient has muscle wasting, collar bones protrude out -will see how he does w the video *narrowed esophagus -has had esophageal dilation in the past -to get dilation this Monday (on Eliquis-this is on hold) *hx of afib -on Eliquis for this *renal insufficiency -creat is close to his baseline of 1.7 *Plan: HOLD Eliquis, NPO after midnight Subjective: Teo said he had lots of diarrhea last night, and one small bout this morning. Appetite is good. Objective: Vital Signs Temp Pulse Resp BP Pulse Ox 36.8 C 84 14 131/75 H 95 02/22/19 07:30 02/22/19 08:30 02/22/19 07:30 02/22/19 08:30 02/22/19 07:30 02/21/19 02/22/19 02/23/19 05:59 05:59 05:59 Intake Total 1132 800 Output Total 1250 400 Balance -118 400 PT 16.8 SEC (12.0-15.0) H 02/19/19 16:07 INR 1.43 (0.83-1.16) H 02/19/19 16:07 - Physical Exam Constitutional: no apparent distress, chronically ill appearing, cachectic Eyes: PERRL Ears, Nose, Mouth, Throat: hearing normal Cardiovascular: regular rate and rhythym, systolic murmur Respiratory: no respiratory distress Gastrointestinal: normoactive bowel sounds Skin: warm Musculoskeletal: generalized weakness Neurologic: AAOx3 Psychiatric: interacting appropriately ICD10 Worksheet Patient Problems: Problems Problem Status Onset Dehydration Acute Difficulty swallowing liquids Acute Atrial fibrillation Acute Brain mass Acute C1 cervical fracture Acute Forehead laceration Acute Head injury due to trauma Acute
[2019-02-22] MEDS ORDERED: NS 1,000 ML IV SCH (10:30)
[2019-02-22] MEDS: FOLIC ACID 1 MG TAB PO SCH (20:39)
[2019-02-22] MEDS: BIMATOPROST 0.01% 2.5 ML OPHT.BTL EACHEYE SCH (20:39)
--- NOTE | 2019-02-23 08:54 | HOSPPROG ---
Hospitalist Progress Note Assessment/Plan: Mr Thorne brought himself to the ER because he hasn't been able to eat or drink much since Monday. *Dysphagia -reviewed his care w ST -ok to put on regular diet *r middle lobe opacity -concern for aspiration -no fevers or cough, procalcitonin is low -cont monitoring for any s/sx for possible infection *diarrhea -resolved *C1 fx hx -hard collar in place for 2 months from injury -appreciate neurosurgery seeing him, no collar is indicated *mechanical fall -per the patient he has been falling more often, says he isn't picking up his feet w ambulation - PT and OT seeing -ambulating well *severe malnutrition w a BMI of 18 -patient has muscle wasting, collar bones protrude out -will see how he does w the video *narrowed esophagus -has had esophageal dilation in the past -to get dilation this Monday (on Eliquis-this is on hold) *hx of afib -on Eliquis for this *renal insufficiency -creat is close to his baseline of 1.3 *Plan: HOLD Eliquis,NPO. He wants to go home today after the procedure, he will contact his daughter to stay w him since he will be receiving sedation. Subjective: Prasanth has no complaints, wants to get the procedure done Objective: Vital Signs Temp Pulse Resp BP Pulse Ox 36.6 C 95 16 114/61 96 02/23/19 05:39 02/23/19 07:59 02/23/19 07:59 02/23/19 07:59 02/23/19 07:59 Laboratory Results 02/23/19 04:28 02/22/19 02/23/19 02/24/19 05:59 05:59 05:59 Intake Total 800 700 Output Total 400 Balance 400 700 PT 16.8 SEC (12.0-15.0) H 02/19/19 16:07 INR 1.43 (0.83-1.16) H 02/19/19 16:07 - Physical Exam Constitutional: no apparent distress, No not in pain Eyes: PERRL Ears, Nose, Mouth, Throat: hearing normal Respiratory: no respiratory distress Skin: warm Musculoskeletal: generalized weakness Neurologic: AAOx3 Psychiatric: interacting appropriately ICD10 Worksheet Patient Problems: Problems Problem Status Onset Dehydration Acute Difficulty swallowing liquids Acute Atrial fibrillation Acute Brain mass Acute C1 cervical fracture Acute Forehead laceration Acute Head injury due to trauma Acute
[2019-02-23] MEDS: TIMOLOL 0.5% 15 ML OPHT.BTL EACHEYE SCH (09:00)
--- NOTE | 2019-02-23 14:29 | SOAPPROG ---
SOAP Progress Note Assessment/Plan: Assessment: 1. Oropharyngeal dysphagia 2. Malnutrition 3. Aspiration pneumonia Plan: 1. NPO 2. EGD to exclude any esophageal contributions to dysphagia but I suspect this will be attributable to oropharyngeal dysfunction 3. Hold Eliquis 4. If EGD is normal then patient will need to work with speech and nutrition to see if he can optimize his intake enough to avoid the need for a gastrostomy to supplement nutrition and hydration 5. Discussed plan with patient and son. 02/23/19 14:26 Subjective: CC: Dry mouth Poor appetite with early satiety. Chokes on food at times Objective: Vital Signs Temp Pulse Resp BP Pulse Ox 36.6 C 95 16 114/61 96 02/23/19 05:39 02/23/19 07:59 02/23/19 07:59 02/23/19 07:59 02/23/19 07:59 Laboratory Results 02/23/19 04:28 02/22/19 02/23/19 02/24/19 05:59 05:59 05:59 Intake Total 800 700 Output Total 400 Balance 400 700 PT 16.8 SEC (12.0-15.0) H 02/19/19 16:07 INR 1.43 (0.83-1.16) H 02/19/19 16:07 Physical Exam - Physical Exam General Appearance: thin Respiratory: rhonchi Cardiac/Chest: regular rate, rhythm, extra beats Abdomen: non-tender, soft, No distended ICD10 Worksheet Patient Problems: Problems Problem Status Onset Dehydration Acute Difficulty swallowing liquids Acute Atrial fibrillation Acute Brain mass Acute C1 cervical fracture Acute Forehead laceration Acute Head injury due to trauma Acute
[2019-02-23] MEDS ORDERED: D5W 1/2 NS 1,000 ML IV SCH (15:00)
[2019-02-23] MEDS: Mirabegron [Myrbetriq] 50 MG PO SCH (15:13)
[2019-02-23] MEDS: CYANO/VITAMIN B12 1000 MCG TAB PO SCH (15:14)
[2019-02-23] MEDS: DILTIAZEM CD 180 MG CAP PO SCH (15:15)
[2019-02-23] MEDS: SOLIFENACIN SUCCINATE 5 MG TAB PO SCH (15:15)
[2019-02-23] MEDS ORDERED: PROPOFOL/EMULSION 500 MG/50 ML BOTTLE IV ONE (15:46)
[2019-02-23] MEDS ORDERED: LIDOCAINE 2% 100 MG/5 ML SYR ONE (15:48)
--- NOTE | 2019-02-23 15:48 | PDANEPAE ---
ANE Past Medical History - Cardiovascular History Hx Hypertension: Yes Hx Arrhythmias: No Hx Chest Pain: No Hx Coronary Artery / Peripheral Vascular Disease: No Hx CHF / Valvular Disease: No Hx Palpitations: No Cardiovascular History Comment: A-FIB - Pulmonary History Hx COPD: No Hx Asthma/Reactive Airway Disease: No Hx Recent Upper Respiratory Infection: No Hx Oxygen in Use at Home: No Hx Sleep Apnea: Yes Sleep Apnea Screening Result - Last Documented: Positive - Neurologic History Hx Cerebrovascular Accident: No Hx Seizures: No Hx Dementia: No - Endocrine History Hx Diabetes: No - Renal History Hx Renal Disorders: No Renal History Comment: HALF KIDNEY FUNCTION - Liver History Hx Hepatic Disorders: No - Neurological & Psychiatric Hx Hx Neurological and Psychiatric Disorders: No - Cancer History Hx Cancer: No - Congenital Disorder History Hx Congenital Disorders: No - GI History Hx Gastrointestinal Disorders: No - Other Health History Other Health History: FLAT FEET - Chronic Pain History Chronic Pain: Yes (ankylosing spondylitis) - Surgical History Prior Surgeries: RIGHT HIP SURGERY 1998. CATARACT SURGERIES BOTH EYES IN 2011 ANE Review of Systems Review of Systems: ANE Patient History - Allergies Allergies/Adverse Reactions: infliximab [From Remicade] Allergy (Verified 02/19/19 19:18) Rash BENZOINE Allergy (Uncoded 02/19/19 19:18) Rash - Home Medications Home Medications: Acetaminophen [Acetaminophen Extra Strength] 1,000 mg PO BID 02/19/19 [Last Taken 02/19/19 09:00] Apixaban [Eliquis] 2.5 mg PO BID 02/19/19 [Last Taken 02/19/19 09:00] Bimatoprost 0.01% [Lumigan 0.01% (*)] 1 drops EACHEYE HS 02/19/19 [Last Taken 21:00] Cyanocobalamin [Vitamin B12 (*)] 1,000 mcg PO DAILY 02/19/19 [Last Taken 09:00] Denosumab [Prolia] 60 mg SQ Q180D 02/19/19 [Last Taken 01/20/19] Diltiazem HCl [DILTIAZEM ER] 180 mg PO DAILY 02/19/19 [Last Taken 02/19/19 09:00 ] Folic Acid [Folic Acid 1 MG (*)] 1 mg PO HS 02/19/19 [Last Taken 02/18/19 21:00] Mirabegron [Myrbetriq] 50 mg PO DAILY 02/19/19 [Last Taken 02/19/19 09:00] Omeprazole 20 mg PO BID 02/19/19 [Last Taken 02/19/19 09:00] Solifenacin Succinate [Vesicare 5 MG (*)] 5 mg PO DAILY 02/19/19 [Last Taken 01/08 09:00] Timolol 0.5% [TIMOPTIC 0.5% (*)] 1 drops EACHEYE DAILY 02/19/19 [Last Taken 01/08 09:00] oxyCODONE IR [Oxycodone Ir (*)] 5 - 10 mg PO Q8H PRN 02/19/19 [Last Taken Unknown] traZODone [traZODONE 100MG (*)] 100 mg PO HS PRN 02/19/19 [Last Taken Unknown] - NPO status NPO Since - Liquids (Date): 02/22/19 NPO Since - Liquids (Time): 00:00 NPO Since - Solids (Date): 02/22/19 NPO Since - Solids (Time): 00:00 - Smoking Hx Smoking Status: Former smoker - Alcohol Use Alcohol Use: None ANE Labs/Vital Signs - Labs Result Diagrams: 02/20/19 04:25 02/23/19 04:28 - Vital Signs Blood Pressure: 153/85 Heart Rate: 62 Respiratory Rate: 16 O2 Sat (%): 97 Height: 170.18 cm Weight: 53.07 kg ANE Physical Exam - Airway Neck exam: decreased ROM, spinal fusion Mallampati Score: Class 3 Mouth exam: poor dentition - Pulmonary Pulmonary: no respiratory distress - Cardiovascular Cardiovascular: regular rate and rhythym - ASA Status ASA Status: III ANE Anesthesia Plan Total IV Anesthesia: Yes
[2019-02-23] MEDS ORDERED: NALOXONE HCL 0.4 MG/ML INJ IVP PRN (15:59)
[2019-02-23] MEDS ORDERED: ONDANSETRON 4 MG/2 ML VIAL IVP PRN (15:59)
[2019-02-23] MEDS ORDERED: ALBUTEROL 3 ML DEYVIAL IH PRN (15:59)
--- NOTE | 2019-02-23 16:07 | GIREPORT ---
Former[facility] Surgical Services - Endoscopy Department Patient Name: Teo Thorne Procedure Date: 02/23/2019 3:41 PM Patient Type: Inpatient Attending MD/ ER Physician: Matthew Donaldson MD Procedure: Upper GI endoscopy Indications: Dysphagia, Weight loss Providers: Matthew Donaldson MD Medicines: Propofol per Anesthesia Complications: No immediate complications. Description of Procedure: After obtaining informed consent, the endoscope was passed under direct vision. Throughout the procedure, the patient's blood pressure, pulse, and oxygen saturations were monitored continuously. The Endoscope was intro duced through the mouth, and advanced to the second part of duodenum. [facility] er GI endoscopy was accomplished without difficulty. The patient tolerated th e procedure well. Findings: Abnormal motility was noted in the esophagus. The cricopharyngeus was normal. There is a decrease in motility of the esophageal body. The dis kal esophagus/lower esophageal sphincter is open. Tertiary peristaltic wave s are noted. Small-caliber esophagus. This was not felt to be restrictive to the [place] of food. A medium-sized hiatal hernia was present. Patchy moderately erythematous mucosa without bleeding was found in the entire examined stomach. The examined duodenum was normal. Estimated Blood Loss: Estimated blood loss: none. Post Op Diagnosis: - Abnormal esophageal motility. - Small caliber esophagus without focal stenosis. - Medium-sized hiatal hernia. - Erythematous mucosa in the stomach. - Normal examined duodenum. - No specimens collected. Recommendation: - Advance diet as tolerated. - I suspect most of his dysphagia is oropharyngeal in nature and may re spond to speech therapy and nutrition support. - Consider gastrostomy feeding tube if he is unable to maintain his nutrition and hydration - A formal CINE-esophagram may add value to his evaluation in regards t o the motility disturbance seen on EGD today and we can consider this. - [facility]. - Continue present medications. - Ok to resume Eliquis. - Thank you for allowing me to be involved in the care of your patient. Attending Participation: I personally performed the entire procedure without the assistance of a fellow, resident or surg ical visitor services assistant. Matthew Donaldson MD Matthew Donaldson MD 02/23/2019 4:07:17 PM This report has been signed electronicallyDavid MD Mendoza Number of Addenda: 0 Note Initiated On: 02/23/2019 3:41 PM [email or web address]
[2019-02-23] MEDS: ACETAMINOPHEN 325 MG TAB PO PRN (20:57)
[2019-02-23] MEDS: BIMATOPROST 0.01% 2.5 ML OPHT.BTL EACHEYE SCH (20:58)
[2019-02-23] MEDS: APIXABAN 2.5 MG TAB PO SCH (20:58)
[2019-02-23] MEDS: FOLIC ACID 1 MG TAB PO SCH (20:58)
[2019-02-24 09:19] VITALS: BP 121/79
[2019-02-24] MEDS: CYANO/VITAMIN B12 1000 MCG TAB PO SCH (10:05)
[2019-02-24] MEDS: DILTIAZEM CD 180 MG CAP PO SCH (10:05)
[2019-02-24] MEDS: APIXABAN 2.5 MG TAB PO SCH (10:05)
[2019-02-24] MEDS: SOLIFENACIN SUCCINATE 5 MG TAB PO SCH (10:05)
[2019-02-24] MEDS: ACETAMINOPHEN 325 MG TAB PO PRN (10:09)
[2019-02-24] MEDS: Mirabegron [Myrbetriq] 50 MG PO SCH (10:17)
[2019-02-24] MEDS: TIMOLOL 0.5% 15 ML OPHT.BTL EACHEYE SCH (10:19)
--- NOTE | 2019-02-24 12:14 | SOAPPROG ---
SOAP Progress Note Assessment/Plan: Assessment: 1. Oropharyngeal dysphagia 2. Malnutrition 3. Aspiration pneumonia Plan: 1. EGD did not show a correctable cause for dysphagia. I do believe there is an esophageal component to his dysphagia (poor esophageal motility and a diffusely narrow caliber esophagus) but I do not feel this is amenable to improvement with dilation 2. Speech therapy should be ongoing with him to help with the mechanics of his oropharyngeal component of dysphagia 3. Nutrition should also be periodically involved to help him with calorie needs and food choices that optimize nutrition and hydration 4. A gastrostomy was discussed today with family and patient and he is not interested in this currently 5. I would leave him on a PPI once daily in AM indefinitely 6. Ok for discharge from my perspective and call with questions. 02/24/19 12:11 Subjective: CC: Swallowing fine today No acute complaints Objective: Vital Signs Temp Pulse Resp BP Pulse Ox 36.3 C 81 16 121/79 H 100 02/24/19 09:15 02/24/19 09:15 02/24/19 09:15 02/24/19 09:15 02/24/19 09:15 Laboratory Results 02/24/19 04:28 02/23/19 02/24/19 02/25/19 05:59 05:59 05:59 Intake Total 700 300 Balance 700 300 PT 16.8 SEC (12.0-15.0) H 02/19/19 16:07 INR 1.43 (0.83-1.16) H 02/19/19 16:07 Physical Exam - Physical Exam General Appearance: no apparent distress Neck: other (Prominent clavicles and limited ROM in neck due to ) Respiratory: lungs clear Cardiac/Chest: regular rate, rhythm Abdomen: normal bowel sounds, non-tender, soft, No guarding, No rebound ICD10 Worksheet Patient Problems: Problems Problem Status Onset Dehydration Acute Difficulty swallowing liquids Acute Atrial fibrillation Acute Brain mass Acute C1 cervical fracture Acute Forehead laceration Acute Head injury due to trauma Acute
--- NOTE | 2019-02-24 12:41 | HOSPPROG ---
Hospitalist Progress Note Assessment/Plan: Mr Thorne brought himself to the ER because he hasn't been able to eat or drink much since Monday. *Dysphagia -EGD did not show etiology of dysphagia -likely has poor esophageal motility and narrow esophagus -cont speech therapy for mechanics -PPI daily -patient doesn't want a gastrostomy (reviewed w patient and son he is at higher risk for aspiration pna) *r middle lobe opacity -concern for aspiration -no fevers or cough, procalcitonin is low -cont monitoring for any s/sx for possible infection *diarrhea -resolved *C1 fx hx -hard collar in place for 2 months from injury -appreciate neurosurgery seeing him, no collar is indicated *mechanical fall -per the patient he has been falling more often, says he isn't picking up his feet w ambulation - PT and OT seeing -ambulating well *severe malnutrition w a BMI of 18 -patient has muscle wasting, collar bones protrude out -will see how he does w the video *narrowed esophagus -has had esophageal dilation in the past -to get dilation this Monday (on Eliquis-this is on hold) *hx of afib -on Eliquis for this *renal insufficiency -creat is close to his baseline of 1.3 *[facility], son is taking him Subjective: Teo is ready for dc, ate a good breakfast. Objective: Vital Signs Temp Pulse Resp BP Pulse Ox 36.3 C 81 16 121/79 H 100 02/24/19 09:15 02/24/19 09:15 02/24/19 09:15 02/24/19 09:15 02/24/19 09:15 Laboratory Results 02/24/19 04:28 02/23/19 02/24/19 02/25/19 05:59 05:59 05:59 Intake Total 700 300 Balance 700 300 PT 16.8 SEC (12.0-15.0) H 02/19/19 16:07 INR 1.43 (0.83-1.16) H 02/19/19 16:07 - Physical Exam Constitutional: no apparent distress, cachectic Eyes: PERRL Ears, Nose, Mouth, Throat: hearing normal Cardiovascular: regular rate and rhythym Respiratory: no respiratory distress Skin: warm Musculoskeletal: generalized weakness Neurologic: AAOx3 Psychiatric: interacting appropriately ICD10 Worksheet Patient Problems: Problems Problem Status Onset Dehydration Acute Difficulty swallowing liquids Acute Atrial fibrillation Acute Brain mass Acute C1 cervical fracture Acute Forehead laceration Acute Head injury due to trauma Acute
--- NOTE | 2019-02-24 12:51 | PDIAF ---
- Diagnosis Diagnosis: dysphagia, malnutrition, afib Code Status: Do Not Resuscitate - Medication Management Discharge Medications: electronically signed and located in the Home Medication List. - Orders Services needed: Physical Therapy, Occupational Therapy, Speech Language Pathologist Isolation Type: None Diet Recommendation: no restrictions on diet, other (calorie count) Diet Texture: Regular Texture Diet, Thin Liquids, Meds Whole w/Liquids, Meds Crushed in Puree Additional Instructions: if insurance doesn't cover Protonix; take OTC Prilosec (stay on indefinitely) Speech therapy should be ongoing with him to help with the mechanics of his oropharyngeal component of dysphagia Nutrition should also be periodically involved to help him with calorie needs and food choices that optimize nutrition and hydration patient will be discharged to [facility] rehab - Follow Up Care Current Providers and Referrals: GIANNA MORTON [Primary Care Provider] - As per Instructions
--- NOTE | 2019-02-24 13:11 | ASMTLACE ---
LACE Length of stay for Answers: 3 days current admission Comorbidities - select Answers: Cerebrovascular disease all that apply (CVA, TIA, aneurysms, vasc ular dementia) Coronary Artery Disease Moderate or severe liver or renal disease Other Notes: AFib # of Emergency department Answers: 3-4 visits in the last 6 months Score: 14 Date Signed: 02/24/2019 01:11 PM Electronically Signed By:Emily Nguyen RN
--- NOTE | 2019-02-24 13:15 | ASMTCMCOM ---
CM Note CM Note Notes: Per patient's famil;y request, contacted [facility] in [place] as they are familiar with this facility. Referral via allscripts. Spoke with Kristen Peterson intake liaison who confirmed facility able to take with signed MD order, DNR order and diet order. Final orders in allscripts. Son is to transfer patient via private vehicle. CM available if other needs arise. Plan: Dc to SNF today. Date Signed: 02/24/2019 01:15 PM Electronically Signed By:Emily Nguyen RN
--- NOTE | 2019-02-24 14:05 | GDS ---
[f rep st] DISCHARGE SUMMARY DISCHARGE DIAGNOSES: 1. Dysphagia. 2. Right middle lobe opacity. 3. Diarrhea. 4. C1 fracture history. 5. Mechanical fall. 6. Severe malnutrition with a body mass index of 18. 7. Concern for a narrowed esophagus. 8. History of atrial fibrillation. 9. Renal insufficiency. CONSULTATION: Dr. Nicolás Breaux and Dr. Donaldson. HISTORY OF PRESENT ILLNESS: Briefly, the patient is an 83-year-old gentleman who drove to the emerge ncy room for further evaluation because he was having trouble swallowing thin and thick liquids. He had a C1 fracture September 2018 and was placed in a hard collar for 2 months. He had another mechani maureen fall prior to his admission, hitting the top of his head approximately a week ago. He was to hav e an outpatient appointment for endoscopy. He was seen and evaluated by Speech Therapy and recommend ation was to get a video fluoroscopic swallow evaluation. It showed moderate pharyngeal dysphagia. The patient said he has a history of narrowed esophagus, and the plan was to get it dilated. He was seen and evaluated by Dr. Donaldson, and on February 23, he had an upper GI endoscopy which showed a small caliber esophagus without focal stenosis. He has a medium-sized hiatal hernia and an erythematous mu cosa in the stomach. The recommendation of Gastroenterology is that his dysphagia is oropharyngeal i n nature, and he would likely do well with speech therapy. Also talked to the patient and his family , and he could consider a gastrostomy feeding tube. The patient does not want a feeding tube and wou ld prefer to try working with Speech Therapy in the outpatient setting. Also of note, the patient wa s evaluated by the neurosurgical team who felt his C1 fracture was stable. HOSPITAL COURSE PER PROBLEM: 1. Dysphagia. His EGD did not show any clear-cut etiology of dysphagia. He has esophageal dysmotil ity. The recommendation is for Speech Therapy to work with him with mechanics, to continue with PPI daily. 2. Right middle lobe opacity. Told the patient I still am concerned that he is aspirating at times because he does cough frequently. He has no fevers or cough. Procalcitonin is low. He was not skyler abraham for any type of infection. 3. Diarrhea, resolved. 4. C1 fracture history. No collar is indicated per Neurosurgery. 5. Mechanical fall. He has actually been doing quite well with PT and OT. He has not wanted to use a walker at home. He wears a helmet in case he falls. Encouraged him to use a walker. 6. Severe malnutrition with a BMI of 18. He has significant muscle wasting. Recommended a calorie count. 7. Narrowed esophagus. There is not a particular area that was dilated during his endoscopy. 8. History of atrial fibrillation, on Eliquis. 9. Renal insufficiency. His most recent creatinine is 1.4. DISCHARGE CONDITION: Stable. Blood pressure is 121/79, heart rate of 81, respiratory rate of 16, O2 saturation on room air are 100%, temperature 36.3 Celsius. MEDICATIONS AT DISCHARGE: Please see the EMR. DISCHARGE INSTRUCTIONS: 1. To take a PPI indefinitely. 2. Speech therapy should be ongoing with him to help with the mechanics of his dysphagia. 3. To have Nutrition watch and make sure he is putting on weight. 4. He will be discharged to [facility]. Greater than 30 minutes discharging and coordinating the patient's care. /[id number]/MODL
--- NOTE | 2019-02-24 14:08 | ASMTCMCOM ---
CM Note CM Note Notes: Call received from [facility] liaison and the facility is not comfortable with allscripts orders. They will fax a paper order set and request it be filled out and sent. Kristen Peterson informed family has already left the building. Will have MD fill out form when it arrives via fax otherwise they will have to utilize allscripts orders. Date Signed: 02/24/2019 02:08 PM Electronically Signed By:Emily Nguyen RN
--- NOTE | 2019-02-25 10:38 | ASDISCHSUM ---
Discharge Information Plan Status:SNF Medically Cleared to Leave:02/24/2019 Discharge Date:02/24/2019 01:53 PM D/C Disposition:[facility] Facility ADT D/C Disposition:Senior Care Facility Projected Discharge Date:02/24/2019 11:00 AM Transportation at D/C: Discharge Delay Reason: Follow-Up Date:02/24/2019 11:00 AM Discharge Slot: Final Diagnosis: Placement Information Referral Type:*Home Health Care Services Referral ID:[id number] Provider Name: Address 1: Phone Number: Address 2: Fax Number: City: Selection Factors: State: Referral Type:*Jail/SNF Referral ID:[id number] Provider Name:[facility] Address 1:[address] Phone Number: Address 2: Fax Number: [facility]:[place] Selection Factors: State:[place] Patient Contact Information Contact Name:LEE Relationship:Son Address: Work Phone: City:[place] Alternate Phone: State/Zip Code:[place] Email: Financial Information Financial Class:Medicare Primary Plan Desc:MEDICARE INPATIENT Primary Plan Number:[id number] Secondary Plan Desc:SUSAN Secondary Plan Number:[id number] Assessment Information LACE LACE Length of stay for Answers: 3 days current admission Comorbidities - select Answers: Cerebrovascular disease all that apply (CVA, TIA, aneurysms, vasc ular dementia) Coronary Artery Disease Moderate or severe liver or renal disease Other Notes: AFib # of Emergency department Answers: 3-4 visits in the last 6 months Score: 14 Date Signed: 02/24/2019 01:11 PM Electronically Signed By:Emily Nguyen RN [facility] CM Progress Note CM Note CM Note Notes: Met with pt, he was recently here in September 2018 for a fall, fracturing his C1. He is admitted to hospital for difficulty swallowing. He lives alone but has 6 children, Cheikh is his MDPOA. PT recommends homecare and he is agreeable, would like referral sent to [facility] Plan is for him to have an EGD on Monday, dc date uncertain. DC Plan: Homecare/ [facility] Date Signed: 02/21/2019 04:53 PM Electronically Signed By:Tali Moe RN [facility] CM Progress Note CM Note CM Note Notes: Per patient's famil;y request, contacted [facility] in [place] as they are familiar with this facility. Referral via [email or web address]. Spoke with Kristen Peterson intake liaison who confirmed facility able to take with signed MD order, DNR order and diet order. Final orders in allscripts. Son is to transfer patient via private vehicle. CM available if other needs arise. Plan: Dc to SNF today. Date Signed: 02/24/2019 01:15 PM Electronically Signed By:Emily Nguyen RN [facility] CM Progress Note CM Note CM Note Notes: Call received from Kristen mena and the facility is not comfortable with allscripts orders. They will fax a paper order set and request it be filled out and sent. Kristen Peterson informed family has already left the building. Will have MD fill out form when it arrives via fax otherwise they will have to utilize allscripts orders. Date Signed: 02/24/2019 02:08 PM Electronically Signed By:Emily Nguyen RN Intervention Information
--- NOTE | 2019-02-27 20:26 | GPROG ---
[f rep st] PROGRESS NOTE POST ANESTHESIA NOTE DATE OF SERVICE: 02/23/2019 Mr. Thorne tolerated the anesthesia well. He was taken to the recovery room with stable vital signs . No apparent anesthetic complications. /[id number]/MODL
== END 2019-02-24 13:53 | DRG 391 ==
LOC: F3N 18:24 → OBSVTOIN 02-20 14:44 → F1N 02-22 15:12
PROVIDERS: ADMIT Internal Medicine; ATTEND Internal Medicine
PROC: 0DJ08ZZ Inspection of Upper Intestinal Tract, Via Natural or Artificial Opening Endoscopic (ICD-10-PCS; principal; 2019-02-20)
DX: R13.12 Dysphagia, oropharyngeal phase (principal); E43 Unspecified severe protein-calorie malnutrition; Z68.1 Body mass index [BMI] 19.9 or less, adult; R19.7 Diarrhea, unspecified; R94.2 Abnormal results of pulmonary function studies; E86.0 Dehydration; N18.9 Chronic kidney disease, unspecified; I48.91 Unspecified atrial fibrillation; I25.10 Atherosclerotic heart disease of native coronary artery without angina pectoris; G47.33 Obstructive sleep apnea (adult) (pediatric); Z98.1 Arthrodesis status; Z87.891 Personal history of nicotine dependence; Z86.73 Personal history of transient ischemic attack (TIA), and cerebral infarction without residual deficits; Z87.81 Personal history of (healed) traumatic fracture; Z91.81 History of falling; Z79.01 Long term (current) use of anticoagulants
CPT/HCPCS: 92526-GN; 92610-GN; 92611-GN; 97116-GP; 97162-GP; 97165-GO; 97530-GP; 97535-GO; G0378; J2001; J2704